=== PATIENT | male | born 1935 | race Caucasian/White ===

== ENCOUNTER → 2023-04-29 07:39 | Outpatient (REF) | payer OTHER, SELFPAY ==
[2023-04-29 08:27] LABS: % Basophils 0.6 % (0-2); % Eosinophils 3.7 % (0-6); % Immature Granulocytes 0.3 % (0-0.5); % Lymphocytes 22.9 % (20.5-51.1); % Monocytes 14.3 % (1.7-9.3); % Neutrophils 58.2 % (42.2-75.2); Absolute Eosinophils 0.1 10^3/uL (0-0.7); Absolute Lymphocytes 0.8 10^3/uL (1.2-3.4); Absolute Monocytes 0.5 10^3/uL (0.1-0.6); Hematocrit 32.9 % (39.0-52.0); Hemoglobin 10.9 g/dL (13.0-18.0); Mean Corp Hgb Conc. 33.1 g/dL (33.0-37.0); Mean Corpuscular Hgb 37.1 pg (27.0-31.0); Mean Corpuscular Volume 111.9 fL (80.0-94.0); Mean Platelet Volume 12.7 fL (7.4-10.4); Platelet Count 143 10^3/uL (130-400); Red Blood Cell Count 2.94 10^6/uL (4.70-6.10); White Blood Cell Count 3.5 10^3/uL (4.8-10.8)
== END ==
LOC: OIDL 07:39
PROVIDERS: ATTENDING PHYSICIAN Internal Medicine Hematology & Oncology; FAMILY PHYSICIAN Family Medicine
DX: D46.9 Myelodysplastic syndrome, unspecified (principal); D46.1 Refractory anemia with ring sideroblasts; D50.9 Iron deficiency anemia, unspecified
CPT/HCPCS: 36415; 85025

== ENCOUNTER → 2023-05-20 07:36 | Outpatient (REF) | payer OTHER, SELFPAY ==
[2023-05-20 08:19] LABS: % Basophils 0.6 % (0-2); % Eosinophils 4.3 % (0-6); % Immature Granulocytes 0.3 % (0-0.5); % Lymphocytes 23.6 % (20.5-51.1); % Monocytes 11.7 % (1.7-9.3); % Neutrophils 59.5 % (42.2-75.2); Absolute Eosinophils 0.2 10^3/uL (0-0.7); Absolute Lymphocytes 0.8 10^3/uL (1.2-3.4); Absolute Monocytes 0.4 10^3/uL (0.1-0.6); Absolute Neutrophils 2.1 10^3/uL (1.4-6.5); Hematocrit 32.9 % (39.0-52.0); Hemoglobin 10.9 g/dL (13.0-18.0); Mean Corp Hgb Conc. 33.1 g/dL (33.0-37.0); Mean Corpuscular Hgb 37.7 pg (27.0-31.0); Mean Corpuscular Volume 113.8 fL (80.0-94.0); Mean Platelet Volume 11.5 fL (7.4-10.4); Platelet Count 145 10^3/uL (130-400); Red Blood Cell Count 2.89 10^6/uL (4.70-6.10); Red Cell Dist. Width 16.3 % (11.5-14.5); White Blood Cell Count 3.5 10^3/uL (4.8-10.8)
== END ==
LOC: OIDL 07:36
PROVIDERS: ATTENDING PHYSICIAN Internal Medicine Hematology & Oncology
DX: D46.9 Myelodysplastic syndrome, unspecified (principal); D46.1 Refractory anemia with ring sideroblasts
CPT/HCPCS: 36415; 85025

== ENCOUNTER → 2023-06-10 08:45 | Outpatient (REF) | payer OTHER, SELFPAY ==
[2023-06-10 08:56] LABS: % Basophils 0.8 % (0-2); % Eosinophils 3.9 % (0-6); % Lymphocytes 20.9 % (20.5-51.1); % Monocytes 13.1 % (1.7-9.3); % Neutrophils 61.3 % (42.2-75.2); Absolute Eosinophils 0.2 10^3/uL (0-0.7); Absolute Lymphocytes 0.8 10^3/uL (1.2-3.4); Absolute Monocytes 0.5 10^3/uL (0.1-0.6); Absolute Neutrophils 2.4 10^3/uL (1.4-6.5); Hematocrit 32.8 % (39.0-52.0); Hemoglobin 10.7 g/dL (13.0-18.0); Mean Corp Hgb Conc. 32.6 g/dL (33.0-37.0); Mean Corpuscular Hgb 37.4 pg (27.0-31.0); Mean Corpuscular Volume 114.7 fL (80.0-94.0); Mean Platelet Volume 10.9 fL (7.4-10.4); Platelet Count 141 10^3/uL (130-400); Red Blood Cell Count 2.86 10^6/uL (4.70-6.10); Red Cell Dist. Width 16.6 % (11.5-14.5); White Blood Cell Count 3.8 10^3/uL (4.8-10.8)
== END ==
LOC: OIDL 08:45
PROVIDERS: ATTENDING PHYSICIAN Internal Medicine Hematology & Oncology; FAMILY PHYSICIAN Family Medicine
DX: D46.9 Myelodysplastic syndrome, unspecified (principal); D46.1 Refractory anemia with ring sideroblasts; D50.9 Iron deficiency anemia, unspecified
CPT/HCPCS: 36415; 85025

== ENCOUNTER → 2023-07-01 08:24 | Outpatient (REF) | payer OTHER, SELFPAY ==
[2023-07-01 08:35] LABS: % Basophils 0.7 % (0-2); % Eosinophils 4.4 % (0-6); % Lymphocytes 29.9 % (20.5-51.1); % Monocytes 13.3 % (1.7-9.3); % Neutrophils 51.7 % (42.2-75.2); Absolute Eosinophils 0.1 10^3/uL (0-0.7); Absolute Lymphocytes 0.9 10^3/uL (1.2-3.4); Absolute Monocytes 0.4 10^3/uL (0.1-0.6); Absolute Neutrophils 1.5 10^3/uL (1.4-6.5); Hematocrit 33.8 % (39.0-52.0); Hemoglobin 11.1 g/dL (13.0-18.0); Mean Corp Hgb Conc. 32.8 g/dL (33.0-37.0); Mean Corpuscular Hgb 37.5 pg (27.0-31.0); Mean Corpuscular Volume 114.2 fL (80.0-94.0); Mean Platelet Volume 11.3 fL (7.4-10.4); Platelet Count 152 10^3/uL (130-400); Red Blood Cell Count 2.96 10^6/uL (4.70-6.10); Red Cell Dist. Width 16.3 % (11.5-14.5); White Blood Cell Count 2.9 10^3/uL (4.8-10.8)
[2023-07-01 09:45] LABS: Blood Urea Nitrogen 28 mg/dl (9-20); Iron 113 ug/dl (49-181)
[2023-07-01 09:54] LABS: Percent Saturation 39 % (20-50); Total Iron Binding Capacity 286 ug/dl (261-462)
== END ==
LOC: OIDL 08:24
PROVIDERS: ATTENDING PHYSICIAN Internal Medicine Hematology & Oncology
DX: D46.9 Myelodysplastic syndrome, unspecified (principal)
CPT/HCPCS: 36415; 82565; 82728; 83540; 83550; 84520; 85025

== ENCOUNTER 2023-07-08 18:41 | Emergency (ER) | payer OTHER, SELFPAY ==
[2023-07-08 18:46] VITALS: BP 125/71
[2023-07-08 18:47] VITALS: BP 125/71
[2023-07-08 18:55] LABS: % Basophils 0.6 % (0-2); % Eosinophils 1.3 % (0-6); % Immature Granulocytes 0.4 % (0-0.5); % Monocytes 10.4 % (1.7-9.3); % Neutrophils 73.3 % (42.2-75.2); Absolute Eosinophils 0.1 10^3/uL (0-0.7); Absolute Lymphocytes 0.7 10^3/uL (1.2-3.4); Absolute Monocytes 0.5 10^3/uL (0.1-0.6); Absolute Neutrophils 3.4 10^3/uL (1.4-6.5); Hematocrit 31.1 % (39.0-52.0); Hemoglobin 10.6 g/dL (13.0-18.0); Mean Corp Hgb Conc. 34.1 g/dL (33.0-37.0); Mean Corpuscular Hgb 37.2 pg (27.0-31.0); Mean Corpuscular Volume 109.1 fL (80.0-94.0); Mean Platelet Volume 11.4 fL (7.4-10.4); Nucleated Red Blood Cells % 0.4 % (-); Platelet Count 161 10^3/uL (130-400); Red Blood Cell Count 2.85 10^6/uL (4.70-6.10); Red Cell Dist. Width 16.6 % (11.5-14.5); White Blood Cell Count 4.7 10^3/uL (4.8-10.8)
--- NOTE | 2023-07-08 18:57 | ED.GENMED ---
History of Present Illness
General
Chief Complaint: Chest Pain
Source: patient
Exam Limitations: none
Time Seen by Provider: 07/08/23 18:50
Nursing documentation reviewed up to this point in time: agreed with
Travel History
Have you had any contact with someone who has COVID-19?: No
Do you have any symptoms of coronavirus? Fever > 100 degrees, chills, cough, shortness of breath, sore throat, loss of taste or smell, muscle aches, or headache?: No
History of Present Illness
History of Present Illness:
Patient is a 87-year-old male past medical history of A-fib, watchman procedure CAD with bypass surgery,, hypertension hyperlipidemia pacemaker, chronic heart failure with reduced ejection fraction myelodysplastic syndrome presents to the ER for
evaluation of chest pain. He had chest pain around 4 PM while sitting in a chair. He denies any associated shortness breath nausea vomiting radiation. He is currently asymptomatic. Pt came by EMS.
Past History
Past History
ED Past Medical History: CAD, CHF, HTN, Hypercholesterolemia and [place]
ED Past Surgical History: Cardiac and Orthopedic
Social History
Tobacco: Non-smoker
Alcohol: None
Drug: None
Personal:
Living: with family
Review of Systems
Review of Systems
Allergies reviewed?: Yes
All Other Systems: ROS reviewed and negative except as documented in HPI and ROS
Constitutional: Reports no symptoms; Denies fever, fatigue or chills
Respiratory: Reports no symptoms
Cardiac: Reports chest pain; Denies diaphoresis, palpitations or syncope
ABD/GI: Reports no symptoms
: Reports no symptoms
Musculoskeletal: Reports no symptoms
Skin: Reports no symptoms
Neurological: Reports no symptoms
Psychiatric: Reports no symptoms
Phy Exam
General Physical Exam
General Presentation: no apparent distress
General age: appears stated age
General Skin: warm and dry
General Habitus: normal and elderly
General Hydration: appears well hydrated
Cardiovascular Exam
Cardiovascular Exam: regular rate/rhythm, no murmur and normal peripheral pulses
Pulmonary Exam
Pulmonary Exam: lungs clear and no respiratory distress
Neurological Exam
Neurological Exam: alert and oriented x3
Musculoskeletal Exam
Musculoskeletal Exam: full ROM
Skin Exam
Skin Exam: normal color and warm/dry
Psychiatric Exam
Psychiatric Exam: normal mood/affect
Scores
Heart Score for Chest Pain Patients
STEMI patient?: Not applicable
Course
Orders/Labs/Results
Orders:
Orders
07/08/23 18:48
Electrocardiogram (*1) Urgent
Reason for Study: Chest Pain
07/08/23 18:49
EKG- Treatment ONCE
07/08/23 18:50
Complete Blood Count/With Diff Urgent
Comprehensive Metabolic Panel Urgent
PT/INR [Prothrombin Time] Urgent
Troponin I Urgent
07/08/23 19:42
Chest [CR Chest - 2 Views ] Urgent
Comment:
Reason For Exam: cp
07/08/23 20:36
EKG- Treatment ONCE
07/08/23 21:50
Electrocardiogram (*1) Stat
Reason for Study: Other
Other Reason for Exam: chest pain
07/08/23 21:51
Troponin I Urgent
Abnormal Lab Results
07/08/23
18:50
WBC 4.7 L 10^3/uL
(4.8-10.8)
RBC 2.85 L 10^6/uL
(4.70-6.10)
Hgb 10.6 L g/dL
(13.0-18.0)
Hct 31.1 L %
(39.0-52.0)
MCV 109.1 H fL
(80.0-94.0)
MCH 37.2 H pg
(27.0-31.0)
RDW 16.6 H %
(11.5-14.5)
MPV 11.4 H fL
(7.4-10.4)
Absolute Lymphs (auto) 0.7 L 10^3/uL
(1.2-3.4)
Lymphocytes % 14.0 L %
(20.5-51.1)
Monocytes % 10.4 H %
(1.7-9.3)
PT 18.1 H Sec
(11.4-14.6)
BUN 31 H mg/dl
(9-20)
Glucose 109 H mg/dl
(70-99)
07/08/23 18:50
07/08/23 18:50
Vital Signs
Initial and Last Documented VS:
Initial Vital Signs
Pulse Resp BP
91 16 125/71
07/08/23 18:46 07/08/23 18:46 07/08/23 18:46
Last Documented Vital Signs
Temp Pulse Resp BP Pulse Ox
98.0 F 60 17 125/67 96
07/08/23 18:47 07/08/23 19:45 07/08/23 19:45 07/08/23 19:00 07/08/23 19:00
MDM/Problems Addressed
Differential Diagnosis Includes:
Not limited to musculoskeletal chest pain ACS
MDM/Problems Addressed:
Patient is a 7-year-old male who presented with chest pain while sitting in his chair prior to arrival around 4 PM. Patient presented asymptomatic in no acute distress. He does have a significant history consistent with CAD bypass A-fib with
Watchman procedure MDS followed here at [place] for his MDS. Patient presents awake alert no acute distress no recent illness who had no associated shortness of breath with the symptoms no nausea vomiting no radiation afebrile nonhypoxic no
complaints of shortness of breath his lungs are clear. His white count is 4.7 and hemoglobin is 10.6 which is baseline. Normal chemistries and troponin. No acute findings/changes on EKG will keep for second Troponin. As documented patient had a
transesophageal echo January 05 which showed mildly reduced left ventricular systolic function left ejection fraction of 45%.
Patient no acute distress lungs clear no shortness of breath has remained asymptomatic here in the ER.
2221: Repeat troponin second EKG unchanged patient remains asymptomatic will DC home and place on chest pain hotline.
*Critical Care Note
Total Time (30-74mins, 75-104mins- exclusive of procedures): Not Applicable
Data Reviewed
Review of Other/Old Records Reveals: Other (Echo from January 05 shows moderately reduced left ventricular function EF is 36% global hypokinesis with severe hypokinesia of the inferior septal and inferior lateral chapa)
ED Attending Note
-
Portions of this chart may have been created with voice recognition software.� Occasional wrong word or��sound alike� substitutions may have occurred due to the inherent limitations of voice recognition software.
Discharge Plan
Departure
Patient Disposition: Home (Routine Discharge)
Date of Disposition: 07/08/23
Time of Disposition: 22:23
Patient with high blood pressure during this ER visit?: Yes
Condition: Fair
Covid-19: Not Applicable
Discharge Problem:
Chest pain
Instructions: BLOOD PRESSURE
Prescriptions:
No Action
cyanocobalamin (vitamin B-12) 1,000 MCG tablet
1,000 mcg PO DAILY
nitroglycerin 0.4 MG tablet, sublingual
0.4 mg sublingual [id number] PRN (Reason: chest pain)
multivitamin Tablet
1 tab PO DAILY
sertraline 100 mg Tablet
100 mg PO HS
PreserVision Lutein 226-90-0.8-5 mg Capsule
1 cap PO BID
omega 2-yip-jwt-fish oil [Fish Oil] 1,000 mg (120 mg-180 mg) Capsule
1 cap PO DAILY
diphenhydramine-acetaminophen [Tylenol PM Extra Strength] 25-500 mg Tablet
1 tab PO HS
melatonin 3 mg Tablet
3 mg PO HS
metoprolol succinate 25 mg Tablet Extended Release 24 Hr
25 mg PO DAILY
Eliquis 5 MG tablet
5 mg PO BID
furosemide 40 mg Tablet
40 mg PO DAILY
Patient Comments:
12/31/22 ecw shows bid but patient's family confirms that he takes it once daily.
acetaminophen 650 mg Tablet Extended Release
650 mg PO [id number] PRN (Reason: mild pain)
pravastatin 80 mg Tablet
40 mg PO QPM
Patient Comments:
12/31/22 patient cuts pill in half
gabapentin 100 mg Capsule
200 mg PO HS
Patient Comments:
12/31/22 prescription is written for 1 capsule tid but patient takes 2 capsules at bedtime.
vitamin E 268 mg (400 unit) Capsule
268 mg PO BID
Entresto 49-51 mg Tablet
1 tab PO BID Qty: 60 0RF
Referrals:
Ryan Coy MD [Active] -
Clark Mancilla MD [Family Provider] -
Activity Restrictions/Additional Instructions:
As discussed you are placed on the chest pain hotline which means you should receive a phone call from your cardiology office in the next several days however if you do not please give them a call to schedule an appointment soon as possible return
of any worsening of symptoms.
Interventions
Interventions:
*Risk Screen - Suicide Last Done: 07/08/23 18:46
*General Assessment Last Done: 07/08/23 18:46
*Neglect/Abuse Screening Last Done: 07/08/23 18:46
*ED COVID-19 Vaccine History Last Done: 07/08/23 18:46
ED- Cardiac Assessment Last Done: 07/08/23 18:55
Discharge Date and Time
Print Language: SAMOAN
[2023-07-08 19:00] VITALS: BP 125/67
[2023-07-08 19:06] LABS: INR 1.49; PT 18.1 Sec (11.4-14.6)
[2023-07-08 19:12] LABS: ALT (SGPT) 17 U/L (0-50); AST (SGOT) 24 U/L (17-59); Albumin 4.4 g/dl (3.5-5.0); Alkaline Phosphatase 80 U/L (38-126); Blood Urea Nitrogen 31 mg/dl (9-20); Calcium 9.2 mg/dl (8.4-10.2); Carbon Dioxide 30 mmol/L (22-30); Chloride 103 mmol/L (98-107); Estimated Creatinine Clearance 42 ml/min; Glucose 109 mg/dl (70-99); Potassium 4.4 mmol/L (3.5-5.1); Sodium 136 mmol/L (135-145); Total Bilirubin 0.5 mg/dl (0.2-1.3); Total Protein 6.8 g/dl (6.3-8.2); eGFR 53.84
[2023-07-08 19:18] LABS: Troponin I 0.012 ng/ml
[2023-07-08 20:55] VITALS: BP 118/73
[2023-07-08 21:00] VITALS: BP 121/67
[2023-07-08 22:00] VITALS: BP 114/62
[2023-07-08 22:20] LABS: Troponin I < 0.012 ng/ml
== END 2023-07-08 22:29 | disposition home or self-care (01) ==
LOC: EMR 18:41
PROVIDERS: Nurse Practitioner; EMERGENCY PHYSICIAN Student in an Organized Health Care Education/Training Program; FAMILY PHYSICIAN Family Medicine
DX: R07.9 Chest pain, unspecified (principal); I11.0 Hypertensive heart disease with heart failure; I25.10 Atherosclerotic heart disease of native coronary artery without angina pectoris; I48.91 Unspecified atrial fibrillation; Z95.0 Presence of cardiac pacemaker; D46.9 Myelodysplastic syndrome, unspecified
CPT/HCPCS: 99285; 71046; 80053; 84484; 85025; 85610; 93005

== ENCOUNTER → 2023-07-22 08:02 | Outpatient (REF) | payer OTHER, SELFPAY ==
[2023-07-22 08:28] LABS: % Basophils 0.9 % (0-2); % Eosinophils 3.7 % (0-6); % Immature Granulocytes 0.3 % (0-0.5); % Lymphocytes 27.1 % (20.5-51.1); % Monocytes 14.5 % (1.7-9.3); % Neutrophils 53.5 % (42.2-75.2); Absolute Eosinophils 0.1 10^3/uL (0-0.7); Absolute Monocytes 0.5 10^3/uL (0.1-0.6); Absolute Neutrophils 1.9 10^3/uL (1.4-6.5); Hematocrit 32.2 % (39.0-52.0); Hemoglobin 10.9 g/dL (13.0-18.0); Mean Corp Hgb Conc. 33.9 g/dL (33.0-37.0); Mean Corpuscular Hgb 38.7 pg (27.0-31.0); Mean Corpuscular Volume 114.2 fL (80.0-94.0); Mean Platelet Volume 12.7 fL (7.4-10.4); Platelet Count 156 10^3/uL (130-400); Red Blood Cell Count 2.82 10^6/uL (4.70-6.10); Red Cell Dist. Width 16.4 % (11.5-14.5); White Blood Cell Count 3.5 10^3/uL (4.8-10.8)
== END ==
LOC: OIDL 08:02
PROVIDERS: ATTENDING PHYSICIAN Internal Medicine Hematology & Oncology
DX: D46.9 Myelodysplastic syndrome, unspecified (principal)
CPT/HCPCS: 36415; 85025

== ENCOUNTER → 2023-08-12 08:21 | Outpatient (REF) | payer OTHER, SELFPAY ==
[2023-08-12 08:48] LABS: % Basophils 0.5 % (0-2); % Eosinophils 0.7 % (0-6); % Lymphocytes 11.6 % (20.5-51.1); % Monocytes 11.3 % (1.7-9.3); % Neutrophils 75.9 % (42.2-75.2); Absolute Lymphocytes 0.7 10^3/uL (1.2-3.4); Absolute Monocytes 0.7 10^3/uL (0.1-0.6); Absolute Neutrophils 4.6 10^3/uL (1.4-6.5); Hematocrit 30.9 % (39.0-52.0); Hemoglobin 10.3 g/dL (13.0-18.0); Mean Corp Hgb Conc. 33.3 g/dL (33.0-37.0); Mean Corpuscular Hgb 38.3 pg (27.0-31.0); Mean Corpuscular Volume 114.9 fL (80.0-94.0); Mean Platelet Volume 10.9 fL (7.4-10.4); Platelet Count 132 10^3/uL (130-400); Red Blood Cell Count 2.69 10^6/uL (4.70-6.10); Red Cell Dist. Width 15.8 % (11.5-14.5)
== END ==
LOC: OIDL 08:21
PROVIDERS: ATTENDING PHYSICIAN Internal Medicine Hematology & Oncology
DX: D46.9 Myelodysplastic syndrome, unspecified (principal)
CPT/HCPCS: 36415; 85025

== ENCOUNTER → 2023-09-02 07:57 | Outpatient (REF) | payer OTHER, SELFPAY ==
[2023-09-02 08:08] LABS: % Basophils 0.7 % (0-2); % Eosinophils 3.6 % (0-6); % Lymphocytes 26.1 % (20.5-51.1); % Monocytes 12.2 % (1.7-9.3); % Neutrophils 57.4 % (42.2-75.2); Absolute Eosinophils 0.1 10^3/uL (0-0.7); Absolute Lymphocytes 0.8 10^3/uL (1.2-3.4); Absolute Monocytes 0.4 10^3/uL (0.1-0.6); Absolute Neutrophils 1.7 10^3/uL (1.4-6.5); Hematocrit 31.1 % (39.0-52.0); Hemoglobin 10.3 g/dL (13.0-18.0); Mean Corp Hgb Conc. 33.1 g/dL (33.0-37.0); Mean Corpuscular Hgb 38.3 pg (27.0-31.0); Mean Corpuscular Volume 115.6 fL (80.0-94.0); Mean Platelet Volume 12.1 fL (7.4-10.4); Platelet Count 162 10^3/uL (130-400); Red Blood Cell Count 2.69 10^6/uL (4.70-6.10); Red Cell Dist. Width 16.2 % (11.5-14.5)
== END ==
LOC: OIDL 07:57
PROVIDERS: ATTENDING PHYSICIAN Internal Medicine Hematology & Oncology; FAMILY PHYSICIAN Family Medicine
DX: D46.9 Myelodysplastic syndrome, unspecified (principal); D46.1 Refractory anemia with ring sideroblasts; D50.9 Iron deficiency anemia, unspecified
CPT/HCPCS: 36415; 85025

== ENCOUNTER → 2023-09-23 08:42 | Outpatient (REF) | payer OTHER, SELFPAY ==
[2023-09-23 08:58] LABS: % Basophils 0.7 % (0-2); % Eosinophils 2.8 % (0-6); % Lymphocytes 25.2 % (20.5-51.1); % Monocytes 13.4 % (1.7-9.3); % Neutrophils 57.9 % (42.2-75.2); Absolute Eosinophils 0.1 10^3/uL (0-0.7); Absolute Lymphocytes 0.7 10^3/uL (1.2-3.4); Absolute Monocytes 0.4 10^3/uL (0.1-0.6); Absolute Neutrophils 1.7 10^3/uL (1.4-6.5); Hematocrit 31.3 % (39.0-52.0); Hemoglobin 10.6 g/dL (13.0-18.0); Mean Corp Hgb Conc. 33.9 g/dL (33.0-37.0); Mean Corpuscular Hgb 39.1 pg (27.0-31.0); Mean Corpuscular Volume 115.5 fL (80.0-94.0); Mean Platelet Volume 12.1 fL (7.4-10.4); Platelet Count 169 10^3/uL (130-400); Red Blood Cell Count 2.71 10^6/uL (4.70-6.10); Red Cell Dist. Width 16.4 % (11.5-14.5); White Blood Cell Count 2.9 10^3/uL (4.8-10.8)
[2023-09-23 10:46] LABS: Iron 135 ug/dl (49-181)
[2023-09-23 10:57] LABS: Percent Saturation 49 % (20-50); Total Iron Binding Capacity 272 ug/dl (261-462)
== END ==
LOC: OIDL 08:42
PROVIDERS: ATTENDING PHYSICIAN Internal Medicine Hematology & Oncology; FAMILY PHYSICIAN Family Medicine
DX: D46.9 Myelodysplastic syndrome, unspecified (principal); D46.1 Refractory anemia with ring sideroblasts; D50.9 Iron deficiency anemia, unspecified
CPT/HCPCS: 36415; 82728; 83540; 83550; 85025

== ENCOUNTER → 2023-10-14 08:34 | Outpatient (REF) | payer OTHER, SELFPAY ==
[2023-10-14 08:42] LABS: % Eosinophils 3.3 % (0-6); % Immature Granulocytes 0.3 % (0-0.5); % Lymphocytes 23.7 % (20.5-51.1); % Monocytes 14.4 % (1.7-9.3); % Neutrophils 57.3 % (42.2-75.2); Absolute Eosinophils 0.1 10^3/uL (0-0.7); Absolute Lymphocytes 0.7 10^3/uL (1.2-3.4); Absolute Monocytes 0.4 10^3/uL (0.1-0.6); Absolute Neutrophils 1.7 10^3/uL (1.4-6.5); Hematocrit 30.7 % (39.0-52.0); Hemoglobin 10.1 g/dL (13.0-18.0); Mean Corp Hgb Conc. 32.9 g/dL (33.0-37.0); Mean Corpuscular Volume 115.4 fL (80.0-94.0); Mean Platelet Volume 11.5 fL (7.4-10.4); Platelet Count 165 10^3/uL (130-400); Red Blood Cell Count 2.66 10^6/uL (4.70-6.10); Red Cell Dist. Width 16.3 % (11.5-14.5)
== END ==
LOC: OIDL 08:34
PROVIDERS: ATTENDING PHYSICIAN Internal Medicine Hematology & Oncology; FAMILY PHYSICIAN Family Medicine
DX: D46.9 Myelodysplastic syndrome, unspecified (principal); D46.1 Refractory anemia with ring sideroblasts; D50.9 Iron deficiency anemia, unspecified
CPT/HCPCS: 36415; 85025

== ENCOUNTER → 2023-11-04 08:30 | Outpatient (REF) | payer OTHER, SELFPAY ==
[2023-11-04 08:39] LABS: % Basophils 0.7 % (0-2); % Eosinophils 2.7 % (0-6); % Lymphocytes 26.8 % (20.5-51.1); % Monocytes 14.8 % (1.7-9.3); Absolute Eosinophils 0.1 10^3/uL (0-0.7); Absolute Lymphocytes 0.8 10^3/uL (1.2-3.4); Absolute Monocytes 0.4 10^3/uL (0.1-0.6); Absolute Neutrophils 1.6 10^3/uL (1.4-6.5); Hematocrit 30.5 % (39.0-52.0); Mean Corp Hgb Conc. 32.8 g/dL (33.0-37.0); Mean Corpuscular Hgb 38.3 pg (27.0-31.0); Mean Corpuscular Volume 116.9 fL (80.0-94.0); Platelet Count 170 10^3/uL (130-400); Red Blood Cell Count 2.61 10^6/uL (4.70-6.10); Red Cell Dist. Width 16.6 % (11.5-14.5)
== END ==
LOC: OIDL 08:30
PROVIDERS: ATTENDING PHYSICIAN Internal Medicine Hematology & Oncology; FAMILY PHYSICIAN Family Medicine
DX: D46.9 Myelodysplastic syndrome, unspecified (principal); D46.1 Refractory anemia with ring sideroblasts; D50.9 Iron deficiency anemia, unspecified
CPT/HCPCS: 36415; 85025

== ENCOUNTER → 2023-11-25 08:22 | Outpatient (REF) | payer OTHER, SELFPAY ==
[2023-11-25 09:05] LABS: % Basophils 0.7 % (0-2); % Eosinophils 2.7 % (0-6); % Immature Granulocytes 0.3 % (0-0.5); % Lymphocytes 25.4 % (20.5-51.1); % Monocytes 13.7 % (1.7-9.3); % Neutrophils 57.2 % (42.2-75.2); Absolute Eosinophils 0.1 10^3/uL (0-0.7); Absolute Lymphocytes 0.8 10^3/uL (1.2-3.4); Absolute Monocytes 0.4 10^3/uL (0.1-0.6); Absolute Neutrophils 1.7 10^3/uL (1.4-6.5); Hematocrit 27.3 % (39.0-52.0); Hemoglobin 8.9 g/dL (13.0-18.0); Mean Corp Hgb Conc. 32.6 g/dL (33.0-37.0); Mean Corpuscular Hgb 38.5 pg (27.0-31.0); Mean Corpuscular Volume 118.2 fL (80.0-94.0); Mean Platelet Volume 11.7 fL (7.4-10.4); Platelet Count 176 10^3/uL (130-400); Red Blood Cell Count 2.31 10^6/uL (4.70-6.10); Red Cell Dist. Width 16.8 % (11.5-14.5)
== END ==
LOC: OIDL 08:22
PROVIDERS: ATTENDING PHYSICIAN Internal Medicine Hematology & Oncology; FAMILY PHYSICIAN Family Medicine
DX: D46.9 Myelodysplastic syndrome, unspecified (principal); D46.1 Refractory anemia with ring sideroblasts; D50.9 Iron deficiency anemia, unspecified
CPT/HCPCS: 36415; 85025

== ENCOUNTER → 2024-01-06 08:57 | Outpatient (REF) | payer OTHER, SELFPAY ==
[2024-01-06 09:02] LABS: % Basophils 0.8 % (0-2); % Eosinophils 2.7 % (0-6); % Lymphocytes 28.8 % (20.5-51.1); % Neutrophils 52.7 % (42.2-75.2); Absolute Eosinophils 0.1 10^3/uL (0-0.7); Absolute Lymphocytes 0.8 10^3/uL (1.2-3.4); Absolute Monocytes 0.4 10^3/uL (0.1-0.6); Absolute Neutrophils 1.4 10^3/uL (1.4-6.5); Hematocrit 26.2 % (39.0-52.0); Hemoglobin 8.4 g/dL (13.0-18.0); Mean Corp Hgb Conc. 32.1 g/dL (33.0-37.0); Mean Corpuscular Volume 118.6 fL (80.0-94.0); Mean Platelet Volume 11.9 fL (7.4-10.4); Platelet Count 227 10^3/uL (130-400); Red Blood Cell Count 2.21 10^6/uL (4.70-6.10); Red Cell Dist. Width 17.3 % (11.5-14.5); White Blood Cell Count 2.6 10^3/uL (4.8-10.8)
== END ==
LOC: OIDL 08:57
PROVIDERS: ATTENDING PHYSICIAN Internal Medicine Hematology & Oncology; FAMILY PHYSICIAN Family Medicine
DX: D46.9 Myelodysplastic syndrome, unspecified (principal); D46.1 Refractory anemia with ring sideroblasts; D50.9 Iron deficiency anemia, unspecified
CPT/HCPCS: 36415; 85025

== ENCOUNTER → 2024-01-27 08:48 | Outpatient (REF) | payer OTHER, SELFPAY ==
[2024-01-27 09:00] LABS: % Basophils 0.9 % (0-2); % Eosinophils 2.3 % (0-6); % Immature Granulocytes 0.3 % (0-0.5); % Lymphocytes 25.4 % (20.5-51.1); % Monocytes 12.6 % (1.7-9.3); % Neutrophils 58.5 % (42.2-75.2); Absolute Eosinophils 0.1 10^3/uL (0-0.7); Absolute Lymphocytes 0.9 10^3/uL (1.2-3.4); Absolute Monocytes 0.4 10^3/uL (0.1-0.6); Hematocrit 24.3 % (39.0-52.0); Hemoglobin 7.8 g/dL (13.0-18.0); Mean Corp Hgb Conc. 32.1 g/dL (33.0-37.0); Mean Corpuscular Hgb 38.8 pg (27.0-31.0); Mean Corpuscular Volume 120.9 fL (80.0-94.0); Mean Platelet Volume 12.1 fL (7.4-10.4); Platelet Count 230 10^3/uL (130-400); Red Blood Cell Count 2.01 10^6/uL (4.70-6.10); Red Cell Dist. Width 18.5 % (11.5-14.5); White Blood Cell Count 3.4 10^3/uL (4.8-10.8)
== END ==
LOC: OIDL 08:48
PROVIDERS: ATTENDING PHYSICIAN Internal Medicine Hematology & Oncology; FAMILY PHYSICIAN Family Medicine
DX: D46.9 Myelodysplastic syndrome, unspecified (principal); D46.1 Refractory anemia with ring sideroblasts; D50.9 Iron deficiency anemia, unspecified
CPT/HCPCS: 36415; 85025

== ENCOUNTER → 2024-02-03 08:07 | Outpatient (REF) | payer OTHER, SELFPAY ==
[2024-02-03 08:23] LABS: % Basophils 0.9 % (0-2); % Eosinophils 2.1 % (0-6); % Lymphocytes 24.8 % (20.5-51.1); % Monocytes 13.6 % (1.7-9.3); % Neutrophils 58.6 % (42.2-75.2); Absolute Eosinophils 0.1 10^3/uL (0-0.7); Absolute Lymphocytes 0.8 10^3/uL (1.2-3.4); Absolute Monocytes 0.5 10^3/uL (0.1-0.6); Absolute Neutrophils 1.9 10^3/uL (1.4-6.5); Hematocrit 24.6 % (39.0-52.0); Mean Corp Hgb Conc. 32.5 g/dL (33.0-37.0); Mean Corpuscular Hgb 39.2 pg (27.0-31.0); Mean Corpuscular Volume 120.6 fL (80.0-94.0); Mean Platelet Volume 11.6 fL (7.4-10.4); Platelet Count 213 10^3/uL (130-400); Red Blood Cell Count 2.04 10^6/uL (4.70-6.10); Red Cell Dist. Width 18.6 % (11.5-14.5); White Blood Cell Count 3.3 10^3/uL (4.8-10.8)
== END ==
LOC: OIDL 08:07
PROVIDERS: ATTENDING PHYSICIAN Internal Medicine Hematology & Oncology; FAMILY PHYSICIAN Family Medicine
DX: D46.9 Myelodysplastic syndrome, unspecified (principal); D46.1 Refractory anemia with ring sideroblasts; D50.9 Iron deficiency anemia, unspecified
CPT/HCPCS: 36415; 85025

== ENCOUNTER → 2024-02-17 08:42 | Outpatient (REF) | payer OTHER, SELFPAY ==
[2024-02-17 09:00] LABS: % Eosinophils 1.6 % (0-6); % Lymphocytes 25.7 % (20.5-51.1); % Monocytes 11.5 % (1.7-9.3); % Neutrophils 60.2 % (42.2-75.2); Absolute Eosinophils 0.1 10^3/uL (0-0.7); Absolute Lymphocytes 0.8 10^3/uL (1.2-3.4); Absolute Monocytes 0.4 10^3/uL (0.1-0.6); Absolute Neutrophils 1.8 10^3/uL (1.4-6.5); Hematocrit 23.5 % (39.0-52.0); Hemoglobin 7.5 g/dL (13.0-18.0); Mean Corp Hgb Conc. 31.9 g/dL (33.0-37.0); Mean Corpuscular Hgb 38.3 pg (27.0-31.0); Mean Corpuscular Volume 119.9 fL (80.0-94.0); Mean Platelet Volume 12.1 fL (7.4-10.4); Platelet Count 206 10^3/uL (130-400); Red Blood Cell Count 1.96 10^6/uL (4.70-6.10); Red Cell Dist. Width 18.7 % (11.5-14.5)
== END ==
LOC: OIDL 08:42
PROVIDERS: ATTENDING PHYSICIAN Internal Medicine Hematology & Oncology; FAMILY PHYSICIAN Family Medicine
DX: D46.9 Myelodysplastic syndrome, unspecified (principal); D46.1 Refractory anemia with ring sideroblasts; D50.9 Iron deficiency anemia, unspecified
CPT/HCPCS: 36415; 85025; 86850; 86870; 86900; 86901; 86902; 86905; 86920; 86922

== ENCOUNTER 2024-03-10 08:45 | Outpatient (RCR) | payer OTHER, SELFPAY ==
[2024-02-18 08:25] VITALS: BP 104/57
[2024-02-18 08:42] VITALS: BP 104/57
[2024-02-18 09:00] VITALS: BP 98/54
[2024-02-18 11:06] VITALS: BP 108/61
[2024-03-10 08:55] LABS: % Basophils 0.7 % (0-2); % Eosinophils 2.2 % (0-6); % Lymphocytes 27.7 % (20.5-51.1); % Neutrophils 54.4 % (42.2-75.2); Absolute Eosinophils 0.1 10^3/uL (0-0.7); Absolute Lymphocytes 0.8 10^3/uL (1.2-3.4); Absolute Monocytes 0.4 10^3/uL (0.1-0.6); Absolute Neutrophils 1.5 10^3/uL (1.4-6.5); Hematocrit 27.7 % (39.0-52.0); Hemoglobin 8.9 g/dL (13.0-18.0); Mean Corp Hgb Conc. 32.1 g/dL (33.0-37.0); Mean Corpuscular Hgb 37.4 pg (27.0-31.0); Mean Corpuscular Volume 116.4 fL (80.0-94.0); Mean Platelet Volume 11.8 fL (7.4-10.4); Platelet Count 193 10^3/uL (130-400); Red Blood Cell Count 2.38 10^6/uL (4.70-6.10); Red Cell Dist. Width 19.4 % (11.5-14.5); White Blood Cell Count 2.7 10^3/uL (4.8-10.8)
== END 2024-03-15 23:59 | disposition home or self-care (01) ==
LOC: OID 08:45
PROVIDERS: ATTENDING PHYSICIAN Internal Medicine Hematology & Oncology
DX: D46.9 Myelodysplastic syndrome, unspecified (principal)
CPT/HCPCS: 36415; 36430; 85025; 86850; 86870; 86900; 86901; 86902; 86905; 86920; 86922; P9016

== ENCOUNTER → 2024-03-30 08:11 | Outpatient (REF) | payer OTHER, SELFPAY ==
[2024-03-30 08:38] LABS: % Lymphocytes 21.5 % (20.5-51.1); % Monocytes 13.2 % (1.7-9.3); % Neutrophils 62.3 % (42.2-75.2); Absolute Eosinophils 0.1 10^3/uL (0-0.7); Absolute Lymphocytes 0.7 10^3/uL (1.2-3.4); Absolute Monocytes 0.4 10^3/uL (0.1-0.6); Absolute Neutrophils 1.9 10^3/uL (1.4-6.5); Hematocrit 28.6 % (39.0-52.0); Hemoglobin 9.4 g/dL (13.0-18.0); Mean Corp Hgb Conc. 32.9 g/dL (33.0-37.0); Mean Corpuscular Hgb 38.2 pg (27.0-31.0); Mean Corpuscular Volume 116.3 fL (80.0-94.0); Mean Platelet Volume 12.2 fL (7.4-10.4); Platelet Count 212 10^3/uL (130-400); Red Blood Cell Count 2.46 10^6/uL (4.70-6.10); Red Cell Dist. Width 18.8 % (11.5-14.5)
[2024-03-30 09:26] LABS: Iron 177 ug/dl (49-181)
[2024-03-30 09:35] LABS: Percent Saturation 56 % (20-50); Total Iron Binding Capacity 313 ug/dl (261-462)
== END ==
LOC: OIDL 08:11
PROVIDERS: ATTENDING PHYSICIAN Internal Medicine Hematology & Oncology
DX: D46.9 Myelodysplastic syndrome, unspecified (principal); D46.1 Refractory anemia with ring sideroblasts; D50.9 Iron deficiency anemia, unspecified
CPT/HCPCS: 36415; 82728; 83540; 83550; 85025

== ENCOUNTER → 2024-04-20 10:51 | Outpatient (REF) | payer OTHER, SELFPAY ==
[2024-04-20 11:23] LABS: % Basophils 0.7 % (0-2); % Eosinophils 2.6 % (0-6); % Lymphocytes 27.1 % (20.5-51.1); % Neutrophils 53.6 % (42.2-75.2); Absolute Eosinophils 0.1 10^3/uL (0-0.7); Absolute Lymphocytes 0.7 10^3/uL (1.2-3.4); Absolute Monocytes 0.4 10^3/uL (0.1-0.6); Absolute Neutrophils 1.4 10^3/uL (1.4-6.5); Hematocrit 25.3 % (39.0-52.0); Hemoglobin 8.1 g/dL (13.0-18.0); Mean Corpuscular Volume 118.8 fL (80.0-94.0); Mean Platelet Volume 10.8 fL (7.4-10.4); Platelet Count 179 10^3/uL (130-400); Red Blood Cell Count 2.13 10^6/uL (4.70-6.10); Red Cell Dist. Width 18.2 % (11.5-14.5); White Blood Cell Count 2.7 10^3/uL (4.8-10.8)
== END ==
LOC: OIDL 10:51
PROVIDERS: ATTENDING PHYSICIAN Internal Medicine Hematology & Oncology; FAMILY PHYSICIAN Family Medicine
DX: D46.9 Myelodysplastic syndrome, unspecified (principal); D46.1 Refractory anemia with ring sideroblasts; D50.9 Iron deficiency anemia, unspecified
CPT/HCPCS: 36415; 85025

== ENCOUNTER 2024-05-02 09:56 | Outpatient (RCR) | payer OTHER, SELFPAY ==
[2024-04-29 10:56] LABS: % Basophils 1.2 % (0-2); % Eosinophils 1.2 % (0-6); % Immature Granulocytes 0.3 % (0-0.5); % Lymphocytes 22.5 % (20.5-51.1); % Neutrophils 58.8 % (42.2-75.2); Absolute Lymphocytes 0.7 10^3/uL (1.2-3.4); Absolute Monocytes 0.5 10^3/uL (0.1-0.6); Absolute Neutrophils 1.9 10^3/uL (1.4-6.5); Hematocrit 23.3 % (39.0-52.0); Hemoglobin 7.5 g/dL (13.0-18.0); Mean Corp Hgb Conc. 32.2 g/dL (33.0-37.0); Mean Corpuscular Hgb 39.1 pg (27.0-31.0); Mean Corpuscular Volume 121.4 fL (80.0-94.0); Mean Platelet Volume 12.5 fL (7.4-10.4); Platelet Count 208 10^3/uL (130-400); Red Cell Dist. Width 18.4 % (11.5-14.5); White Blood Cell Count 3.3 10^3/uL (4.8-10.8)
[2024-04-29 11:30] LABS: Red Blood Cell Count 1.92 10^6/uL (4.70-6.10)
[2024-05-02 10:20] VITALS: BP 109/56
[2024-05-02] MEDS: TYLENOL 650 MG PO (10:24)
[2024-05-02 10:33] VITALS: BP 109/56
[2024-05-02 10:52] VITALS: BP 105/55
[2024-05-02 12:38] VITALS: BP 105/64
== END 2024-05-13 23:59 | disposition home or self-care (01) ==
LOC: OID 09:56
PROVIDERS: ATTENDING PHYSICIAN Internal Medicine Hematology & Oncology
DX: D46.9 Myelodysplastic syndrome, unspecified (principal)
CPT/HCPCS: 36415; 36430; 85025; 86850; 86870; 86900; 86901; 86920; 86922; P9016

== ENCOUNTER → 2024-05-11 08:21 | Outpatient (REF) | payer OTHER, SELFPAY ==
[2024-05-11 08:33] LABS: % Basophils 0.7 % (0-2); % Lymphocytes 24.2 % (20.5-51.1); % Monocytes 15.6 % (1.7-9.3); % Neutrophils 57.5 % (42.2-75.2); Absolute Eosinophils 0.1 10^3/uL (0-0.7); Absolute Lymphocytes 0.7 10^3/uL (1.2-3.4); Absolute Monocytes 0.5 10^3/uL (0.1-0.6); Absolute Neutrophils 1.7 10^3/uL (1.4-6.5); Hematocrit 25.1 % (39.0-52.0); Mean Corp Hgb Conc. 31.9 g/dL (33.0-37.0); Mean Corpuscular Hgb 37.4 pg (27.0-31.0); Mean Corpuscular Volume 117.3 fL (80.0-94.0); Mean Platelet Volume 11.2 fL (7.4-10.4); Platelet Count 198 10^3/uL (130-400); Red Blood Cell Count 2.14 10^6/uL (4.70-6.10); Red Cell Dist. Width 21.4 % (11.5-14.5)
== END ==
LOC: OIDL 08:21
PROVIDERS: ATTENDING PHYSICIAN Internal Medicine Hematology & Oncology; FAMILY PHYSICIAN Family Medicine
DX: D46.9 Myelodysplastic syndrome, unspecified (principal); D46.1 Refractory anemia with ring sideroblasts; D50.9 Iron deficiency anemia, unspecified
CPT/HCPCS: 36415; 85025

== ENCOUNTER → 2024-05-25 08:06 | Outpatient (REF) | payer OTHER, SELFPAY | LOC: RCS 08:06 | PROVIDERS: ATTENDING PHYSICIAN Internal Medicine | DX: I50.22 Chronic systolic (congestive) heart failure (principal); I25.10 Atherosclerotic heart disease of native coronary artery without angina pectoris; I25.810 Atherosclerosis of coronary artery bypass graft(s) without angina pectoris; I34.0 Nonrheumatic mitral (valve) insufficiency; I36.1 Nonrheumatic tricuspid (valve) insufficiency | CPT/HCPCS: 93306 ==

== ENCOUNTER → 2024-06-01 09:05 | Outpatient (REF) | payer OTHER, SELFPAY ==
[2024-06-01 09:18] LABS: % Basophils 1.3 % (0-2); % Immature Granulocytes 0.3 % (0-0.5); % Lymphocytes 29.2 % (20.5-51.1); % Monocytes 14.6 % (1.7-9.3); % Neutrophils 53.6 % (42.2-75.2); Absolute Basophils 0.1 10^3/uL (0-0.2); Absolute Lymphocytes 1.1 10^3/uL (1.2-3.4); Absolute Monocytes 0.6 10^3/uL (0.1-0.6); Absolute Neutrophils 2.1 10^3/uL (1.4-6.5); Hematocrit 30.6 % (39.0-52.0); Mean Corp Hgb Conc. 32.7 g/dL (33.0-37.0); Mean Corpuscular Hgb 37.6 pg (27.0-31.0); Mean Platelet Volume 11.4 fL (7.4-10.4); Platelet Count 252 10^3/uL (130-400); Red Blood Cell Count 2.66 10^6/uL (4.70-6.10); Red Cell Dist. Width 21.4 % (11.5-14.5); White Blood Cell Count 3.8 10^3/uL (4.8-10.8)
== END ==
LOC: OIDL 09:05
PROVIDERS: ATTENDING PHYSICIAN Nurse Practitioner Adult Health
DX: D46.9 Myelodysplastic syndrome, unspecified (principal); D46.1 Refractory anemia with ring sideroblasts; D50.9 Iron deficiency anemia, unspecified
CPT/HCPCS: 36415; 85025

== ENCOUNTER → 2024-06-22 08:47 | Outpatient (REF) | payer OTHER, SELFPAY ==
[2024-06-22 08:55] LABS: % Basophils 1.2 % (0-2); % Immature Granulocytes 0.2 % (0-0.5); % Lymphocytes 20.9 % (20.5-51.1); % Monocytes 13.7 % (1.7-9.3); Absolute Basophils 0.1 10^3/uL (0-0.2); Absolute Lymphocytes 0.8 10^3/uL (1.2-3.4); Absolute Monocytes 0.6 10^3/uL (0.1-0.6); Absolute Neutrophils 2.5 10^3/uL (1.4-6.5); Hematocrit 30.8 % (39.0-52.0); Mean Corp Hgb Conc. 32.5 g/dL (33.0-37.0); Mean Corpuscular Volume 117.1 fL (80.0-94.0); Mean Platelet Volume 11.9 fL (7.4-10.4); Platelet Count 266 10^3/uL (130-400); Red Blood Cell Count 2.63 10^6/uL (4.70-6.10); Red Cell Dist. Width 21.2 % (11.5-14.5)
== END ==
LOC: OIDL 08:47
PROVIDERS: ATTENDING PHYSICIAN Nurse Practitioner Adult Health
DX: D46.9 Myelodysplastic syndrome, unspecified (principal); D46.1 Refractory anemia with ring sideroblasts; D50.9 Iron deficiency anemia, unspecified
CPT/HCPCS: 36415; 85025

== ENCOUNTER → 2024-07-13 08:42 | Outpatient (REF) | payer OTHER, SELFPAY ==
[2024-07-13 09:20] LABS: % Basophils 1.1 % (0-2); % Eosinophils 1.9 % (0-6); % Immature Granulocytes 0.5 % (0-0.5); % Lymphocytes 21.3 % (20.5-51.1); % Monocytes 11.4 % (1.7-9.3); % Neutrophils 63.8 % (42.2-75.2); Absolute Eosinophils 0.1 10^3/uL (0-0.7); Absolute Lymphocytes 0.8 10^3/uL (1.2-3.4); Absolute Monocytes 0.4 10^3/uL (0.1-0.6); Absolute Neutrophils 2.4 10^3/uL (1.4-6.5); Hematocrit 28.5 % (39.0-52.0); Hemoglobin 9.2 g/dL (13.0-18.0); Mean Corp Hgb Conc. 32.3 g/dL (33.0-37.0); Mean Corpuscular Hgb 37.9 pg (27.0-31.0); Mean Corpuscular Volume 117.3 fL (80.0-94.0); Platelet Count 181 10^3/uL (130-400); Red Blood Cell Count 2.43 10^6/uL (4.70-6.10); Red Cell Dist. Width 20.3 % (11.5-14.5); White Blood Cell Count 3.8 10^3/uL (4.8-10.8)
[2024-07-13 10:37] LABS: ALT (SGPT) 14 U/L (0-50); AST (SGOT) 20 U/L (17-59); Albumin 3.9 g/dl (3.5-5.0); Alkaline Phosphatase 75 U/L (38-126); Blood Urea Nitrogen 27 mg/dl (9-20); Calcium 8.9 mg/dl (8.4-10.2); Carbon Dioxide 27 mmol/L (22-30); Chloride 107 mmol/L (98-107); Glucose 114 mg/dl (70-99); HDL Cholesterol 39 mg/dl; LDL Cholesterol, Calculated 24 mg/dl; Potassium 4.5 mmol/L (3.5-5.1); Sodium 141 mmol/L (135-145); Total Bilirubin 0.6 mg/dl (0.2-1.3); Total Cholesterol 82 mg/dl (50-199); Total Protein 5.9 g/dl (6.3-8.2); Triglyceride 95 mg/dl (10-149); Very Low Density Lipoprotein 19 mg/dl (0-30)
== END ==
LOC: OIDL 08:42
PROVIDERS: Internal Medicine; ATTENDING PHYSICIAN Nurse Practitioner Adult Health
DX: D46.9 Myelodysplastic syndrome, unspecified (principal); D46.1 Refractory anemia with ring sideroblasts; D50.9 Iron deficiency anemia, unspecified
CPT/HCPCS: 36415; 80053; 80061; 85025

== ENCOUNTER → 2024-07-29 14:49 | Outpatient (REF) | payer OTHER, SELFPAY | LOC: RAD 14:49 | PROVIDERS: ATTENDING PHYSICIAN Family Medicine | DX: M54.50 Low back pain, unspecified (principal) | CPT/HCPCS: 72110 ==

== ENCOUNTER → 2024-08-03 08:42 | Outpatient (REF) | payer OTHER, SELFPAY ==
[2024-08-03 09:28] LABS: % Basophils 1.2 % (0-2); % Immature Granulocytes 0.2 % (0-0.5); % Lymphocytes 23.9 % (20.5-51.1); % Monocytes 17.1 % (1.7-9.3); % Neutrophils 56.6 % (42.2-75.2); Absolute Basophils 0.1 10^3/uL (0-0.2); Absolute Monocytes 0.7 10^3/uL (0.1-0.6); Absolute Neutrophils 2.4 10^3/uL (1.4-6.5); Hematocrit 30.8 % (39.0-52.0); Hemoglobin 10.1 g/dL (13.0-18.0); Mean Corp Hgb Conc. 32.8 g/dL (33.0-37.0); Mean Corpuscular Hgb 38.3 pg (27.0-31.0); Mean Corpuscular Volume 116.7 fL (80.0-94.0); Platelet Count 232 10^3/uL (130-400); Red Blood Cell Count 2.64 10^6/uL (4.70-6.10); Red Cell Dist. Width 19.6 % (11.5-14.5); White Blood Cell Count 4.2 10^3/uL (4.8-10.8)
== END ==
LOC: OIDL 08:42
PROVIDERS: ATTENDING PHYSICIAN Nurse Practitioner Adult Health
DX: D46.9 Myelodysplastic syndrome, unspecified (principal); D46.1 Refractory anemia with ring sideroblasts; D50.9 Iron deficiency anemia, unspecified
CPT/HCPCS: 36415; 85025

== ENCOUNTER → 2024-08-24 08:35 | Outpatient (REF) | payer OTHER, SELFPAY ==
[2024-08-24 09:02] LABS: % Basophils 0.9 % (0-2); % Eosinophils 2.1 % (0-6); % Immature Granulocytes 0.3 % (0-0.5); % Lymphocytes 26.5 % (20.5-51.1); % Neutrophils 55.2 % (42.2-75.2); Absolute Eosinophils 0.1 10^3/uL (0-0.7); Absolute Lymphocytes 0.9 10^3/uL (1.2-3.4); Absolute Monocytes 0.5 10^3/uL (0.1-0.6); Absolute Neutrophils 1.9 10^3/uL (1.4-6.5); Hemoglobin 9.6 g/dL (13.0-18.0); Mean Corpuscular Hgb 37.2 pg (27.0-31.0); Mean Corpuscular Volume 116.3 fL (80.0-94.0); Platelet Count 213 10^3/uL (130-400); Red Blood Cell Count 2.58 10^6/uL (4.70-6.10); White Blood Cell Count 3.4 10^3/uL (4.8-10.8)
== END ==
LOC: OIDL 08:35
PROVIDERS: ATTENDING PHYSICIAN Nurse Practitioner Adult Health
DX: D46.9 Myelodysplastic syndrome, unspecified (principal); D46.1 Refractory anemia with ring sideroblasts; D50.9 Iron deficiency anemia, unspecified
CPT/HCPCS: 36415; 85025

== ENCOUNTER → 2024-09-14 08:42 | Outpatient (REF) | payer OTHER, SELFPAY ==
[2024-09-14 08:57] LABS: Hematocrit 26.9 % (39.0-52.0); Hemoglobin 8.5 g/dL (13.0-18.0); Mean Corp Hgb Conc. 31.6 g/dL (33.0-37.0); Mean Corpuscular Volume 115.0 fL (80.0-94.0); Platelet Count 197 10^3/uL (130-400); Red Cell Dist. Width 19.6 % (11.5-14.5)
== END ==
LOC: OIDL 08:42
PROVIDERS: ATTENDING PHYSICIAN Internal Medicine Hematology & Oncology
DX: D46.9 Myelodysplastic syndrome, unspecified (principal); D46.1 Refractory anemia with ring sideroblasts; D50.9 Iron deficiency anemia, unspecified
CPT/HCPCS: 36415; 85025

== ENCOUNTER → 2024-10-05 09:00 | Outpatient (REF) | payer OTHER, SELFPAY ==
[2024-10-05 10:08] LABS: Hematocrit 26.9 % (39.0-52.0); Hemoglobin 8.3 g/dL (13.0-18.0); Mean Corp Hgb Conc. 30.9 g/dL (33.0-37.0); Mean Corpuscular Volume 111.2 fL (80.0-94.0); Platelet Count 202 10^3/uL (130-400); Red Cell Dist. Width 21.0 % (11.5-14.5)
== END ==
LOC: OIDL 09:00
PROVIDERS: ATTENDING PHYSICIAN Internal Medicine Hematology & Oncology
DX: D46.9 Myelodysplastic syndrome, unspecified (principal); D46.1 Refractory anemia with ring sideroblasts; D50.9 Iron deficiency anemia, unspecified
CPT/HCPCS: 85025

== ENCOUNTER → 2024-10-26 08:34 | Outpatient (REF) | payer OTHER, SELFPAY ==
[2024-10-26 09:39] LABS: Hematocrit 24.6 % (39.0-52.0); Hemoglobin 7.4 g/dL (13.0-18.0); Mean Corp Hgb Conc. 30.1 g/dL (33.0-37.0); Mean Corpuscular Volume 108.4 fL (80.0-94.0); Platelet Count 189 10^3/uL (130-400); Red Cell Dist. Width 22.7 % (11.5-14.5)
[2024-10-26 09:40] LABS: Nucleated Red Blood Cells % 1.5 % (-)
== END ==
LOC: OIDL 08:34
PROVIDERS: ATTENDING PHYSICIAN Internal Medicine Hematology & Oncology
DX: D46.9 Myelodysplastic syndrome, unspecified (principal); D46.1 Refractory anemia with ring sideroblasts; D50.9 Iron deficiency anemia, unspecified
CPT/HCPCS: 36415; 85025; 86850; 86870; 86900; 86901; 86902; 86905

== ENCOUNTER 2024-10-28 07:29 | Outpatient (RCR) | payer OTHER, SELFPAY ==
[2024-10-28 08:03] VITALS: BP 121/87
[2024-10-28 08:23] VITALS: BP 106/46
[2024-10-28 09:58] VITALS: BP 121/57
== END 2024-11-13 23:59 | disposition home or self-care (01) ==
LOC: OID 07:29
PROVIDERS: ATTENDING PHYSICIAN Internal Medicine Hematology & Oncology
DX: D46.9 Myelodysplastic syndrome, unspecified (principal); D46.1 Refractory anemia with ring sideroblasts; D50.9 Iron deficiency anemia, unspecified
CPT/HCPCS: 36430; 86850; 86870; 86900; 86901; 86902; 86905; 86920; 86922; P9016

== ENCOUNTER → 2024-11-04 15:45 | Outpatient (REF) | payer OTHER, SELFPAY ==
[2024-11-04 16:23] LABS: Hematocrit 27.9 % (39.0-52.0); Hemoglobin 8.5 g/dL (13.0-18.0); Mean Corp Hgb Conc. 30.5 g/dL (33.0-37.0); Mean Corpuscular Volume 104.1 fL (80.0-94.0); Nucleated Red Blood Cells % 1.8 % (-); Platelet Count 182 10^3/uL (130-400); Red Cell Dist. Width 23.1 % (11.5-14.5)
[2024-11-04 16:38] LABS: Normal RBC Morphology No
[2024-11-04 16:41] LABS: Anisocytosis 2+; Hypochromasia 2+; Poikilocytosis 1+; Polychromasia 1+
[2024-11-04 16:42] LABS: Target Cells 1+
== END ==
LOC: REG 15:45
PROVIDERS: ATTENDING PHYSICIAN Internal Medicine Hematology & Oncology
DX: D46.9 Myelodysplastic syndrome, unspecified (principal); D46.1 Refractory anemia with ring sideroblasts; D50.9 Iron deficiency anemia, unspecified
CPT/HCPCS: 36415; 85025

== ENCOUNTER 2024-11-04 20:11 | Emergency (ER) | payer OTHER, SELFPAY ==
[2024-11-04 20:16] VITALS: BP 134/72
[2024-11-04 20:45] LABS: Hematocrit 27.2 % (39.0-52.0); Hemoglobin 8.4 g/dL (13.0-18.0); Mean Corp Hgb Conc. 30.9 g/dL (33.0-37.0); Mean Corpuscular Volume 102.3 fL (80.0-94.0); Nucleated Red Blood Cells % 1.5 % (-); Platelet Count 195 10^3/uL (130-400); Red Cell Dist. Width 23.0 % (11.5-14.5)
[2024-11-04 21:05] LABS: ALT (SGPT) 16 U/L (0-50); AST (SGOT) 23 U/L (17-59); Albumin 4.3 g/dl (3.5-5.0); Alkaline Phosphatase 92 U/L (38-126); Blood Urea Nitrogen 39 mg/dl (9-20); Calcium 8.8 mg/dl (8.4-10.2); Carbon Dioxide 28 mmol/L (22-30); Chloride 104 mmol/L (98-107); Glucose 107 mg/dl (70-99); Potassium 4.6 mmol/L (3.5-5.1); Sodium 138 mmol/L (135-145); Total Protein 6.4 g/dl (6.3-8.2); eGFR 41.70
[2024-11-04 21:24] LABS: Normal RBC Morphology No
[2024-11-04 21:25] LABS: Anisocytosis 3+; Basophilic Stippling 1+; Hypochromasia 2+; Polychromasia 1+; Target Cells 1+
[2024-11-04 21:48] VITALS: BP 145/86
[2024-11-04 22:00] VITALS: BP 144/74
--- NOTE | 2024-11-04 22:44 | ED.GENMED ---
History of Present Illness
General
Chief Complaint: Breathing Problem
Time Seen by Provider: 11/04/24 22:44
History of Present Illness
History of Present Illness:
PAST MEDICAL HISTORY AND REVIEW OF OLD RECORDS
- Patient has history of A-fib, CAD, high blood pressure, myelodysplastic syndrome
Note:
CHIEF COMPLAINT(S)
Shortness of breath and fatigue.
HISTORY OF PRESENT ILLNESS
The patient is an 88-year-old male with a history of myelodysplastic syndrome who presents with increased shortness of breath and fatigue following a blood transfusion performed about a week ago at an infusion center. At the last recorded laboratory
test, the patient had a hemoglobin level of 7.4, which was the reason for the transfusion. Post-transfusion, his hemoglobin has increased to 8.4. Despite this, the patient is experiencing significant dyspnea on exertion, notably during activities
such as walking outside and hanging clothes, which he typically manages without difficulty.
An X-ray conducted today reveals a small pleural effusion. The patient reports that his shortness of breath occurs primarily during movement and not while at rest, watching TV, or sleeping. There is no mention of chest pain or other complaints. The
patients kidney function has deteriorated slightly, with recent blood tests showing a creatinine level of 1.6. The consideration of increasing his diuretic medication, Furosemide (Lasix), is complicated by this renal function concern.
He has a background of severe coronary artery disease and is currently on 40 mg of Furosemide, alongside a history of having fluid retention post-blood transfusion, necessitating an increase in his diuretic dose in the past.
PAST MEDICAL AND SURIGICAL HISTORY
- Myelodysplastic syndrome
- Severe coronary artery disease
REVIEW OF SYSTEMS
- Respiratory: Shortness of breath on exertion
- General: Fatigue
PHYSICAL EXAM
General: Alert, no acute distress.
Skin: Warm, dry.
Head: Normocephalic, atraumatic.
Neck: Supple, trachea midline.
Eye, Ears, Nose, Mouth and Throat: Oral mucosa moist.
Cardiovascular: Normal peripheral perfusion, No edema.
Respiratory: Respirations are non-labored, decreased breath sounds on the left side due to small pleural effusion. I walked the patient in the emergency department for about 60 feet and his room air sat remained at 96% however he became somewhat
tachypneic toward the end of the walk
Gastrointestinal: Abdomen nondistended.
Back: Normal range of motion, Normal alignment.
Musculoskeletal: Normal range of motion, normal strength.
Neurological: Alert and oriented to person, place, time, and situation, No focal neurological deficit observed.
Psychiatric: Cooperative, appropriate mood & affect.
PROBLEM LIST
- Acute Problems:
- Shortness of breath
- Small pleural effusion
- Recent increase in creatinine
- Chronic Problems:
- Myelodysplastic syndrome
- Severe coronary artery disease
PLAN
- Consider increasing Furosemide (Lasix) dosage to manage fluid retention while monitoring kidney function closely.
- Administer intravenous Furosemide to promote rapid diuresis.
- Contact working manager to discuss the patients current condition and adjust the management plan accordingly.
DIFFERENTIAL DIAGNOSIS
The Differential Diagnosis includes, in no particular order and is not limited to:
- Congestive heart failure
- Exacerbation of chronic obstructive pulmonary disease
- Pulmonary embolism
- Viral or bacterial pneumonia
- Anemia-related exertional dyspnea
- Myocardial infarction
- Spontaneous pneumothorax
- Cardiac arrhythmia
- Aspiration pneumonia
- Acute kidney injury related to decreased perfusion due to heart failure or other causes
RADIOLOGY
- Chest x-ray shows a small left pleural effusion
EKG
- V paced, rate of 85
LABS
- Hemoglobin 8.4 and 9 days ago was 7.4, creatinine 1.6 which is higher than prior, BNP 3690
UPDATE
- Sent message to Dr. Swanson 'ANGIE RAYA, 88M, ROOM 21. Known to [facility]. Here w/ SOB/FREEMAN, fatigue. Had blood transfusion last week (went from 7.4 to 8.4 today). RA sats after I walked him for about 60ft remained 96%. CXR shows a left
pleural effusion. He says his good weight is 175, but darrioner is weighing him at 190 (but he doesn't think he has been gaining weight). BNP 3690 which is lower than prior. He normally takes lasix 40mg qd and I am giving an IV dose of 40mg now.
His Cr is newly elevated at 1.6. May echo EF 45-50% and global hypokinesis. He doesn't want to stay, but I'm hoping Anneliese could get him in soon this coming week.'
SUMMARY OF ENCOUNTER
The patient, an 88-year-old male, presented to the emergency department with increased shortness of breath and fatigue following a blood transfusion a week ago. Despite an improvement in hemoglobin levels from 7.4 to 8.4, the patient reports
significant dyspnea on exertion. An x-ray revealed a small pleural effusion, contributing to his symptoms. Concerns about kidney function arise with an increased creatinine level noted post-transfusion. Furosemide was administered to address fluid
retention, and discussions have been made to potentially increase dosage temporarily, considering the delicate renal status.
DISPOSITION
Discharge
ASSESSMENT
The patient�s primary issues include shortness of breath likely due to fluid overload related to the small pleural effusion, exacerbated by pre-existing conditions like severe coronary artery disease.
EMERGENCY TREATMENTS ADMINISTERED
Intravenous administration of Furosemide was conducted to manage fluid retention.
MANAGEMENT OF THE PATIENTS CARE WAS DISCUSSED WITH
Care coordination and management discussions occurred with Dr. Swanson, the on-call working manager.
PLAN
To provisionally increase Furosemide dosage to 80 mg tomorrow to manage fluid retention and subsequently return to the normal dosing. Coordinate with cardiology to facilitate a follow-up appointment soon, preferably by Thursday, to reassess the
patient�s condition.
INDEPENDENT REVIEW OF LABS AND INTERPRETATION OF TESTS
My independent review indicates decreased renal function with a creatinine level increase to 1.6. Hemoglobin levels improved to 8.4 post-transfusion.
PATIENT EDUCATION AND COUNSELING
The patient was advised on signs of worsening renal function or fluid overload and instructed to seek immediate care if symptoms exacerbate.
FOLLOW-UP INSTRUCTIONS
The patient was instructed to follow up with cardiology early next week and to monitor for any concerning symptoms.
MEDICATION RECONCILIATION
Patient received intravenous Furosemide in the emergency department. A temporary increase to 80 mg of Furosemide was advised for the following day.
MEDICAL DECISION MAKING
- Number and Complexity of Problems Addressed: Chronic conditions affecting care include myelodysplastic syndrome and severe coronary artery disease. The Differential Diagnosis includes congestive heart failure, exacerbation of COPD, pulmonary
embolism, pneumonia, anemia-related dyspnea, myocardial infarction, pneumothorax, cardiac arrhythmia, and kidney injury.
- Data:
Category 1
My independent interpretation of the chest x-ray indicates a small pleural effusion contributing to respiratory symptoms.
Category 3
Discussion of management with the on-call working manager, Dr. Swanson, regarding diuretic adjustments and follow-up arrangements-she states that she will message the office for close follow-up
-Risk:
Consideration of Admission/Observation: Escalation of care including admission/observation was considered given the complexity and risk of the patients presenting complaint, exam findings, and their underlying comorbidities. However, ultimately I
feel the patient is safe for outpatient management with close follow up. Reasoning: Work-up reassuring, does not reveal any acute life/organ threatening processes, patients symptoms well controlled upon reevaluation, reexamination is reassuring,
vitals are stable, patient agreeable with discharge, reliable for follow-up.
DIAGNOSIS
- Small pleural effusion (J90)
- Chronic heart failure, unspecified (I50.9)
- Anemia in chronic diseases classified elsewhere (D63.8)
Past History
Past History
ED Past Medical History: CAD, CHF, HTN, Hypercholesterolemia and [place]
ED Past Surgical History: Cardiac and Orthopedic
Social History
Tobacco: Non-smoker
Alcohol: None
Drug: None
Personal:
Living: with family
Phy Exam
Physical Exam
Physical Exam:
See HPI
Scores
Heart Failure Risk
Heart Failure Risk Score: Not Applicable
Course
Orders/Labs/Results
Orders:
Orders
11/04/24 20:20
Electrocardiogram (*1) Urgent
Reason for Study: Shortness of Breath
EKG- Treatment ONCE
CR Chest - 2 Views Urgent
Comment:
Reason For Exam: shortness of breath
11/04/24 20:25
Complete Blood Count/With Diff Urgent
Comprehensive Metabolic Panel Urgent
Pro-BNP [NT-proBNP] Urgent
11/04/24 23:07
Furosemide [Lasix] 40 mg IV NOW STA
Abnormal Lab Results
11/04/24
20:25
RBC 2.66 L 10^6/uL
(4.70-6.10)
Hgb 8.4 L g/dL
(13.0-18.0)
Hct 27.2 L %
(39.0-52.0)
MCV 102.3 H fL
(80.0-94.0)
MCH 31.6 H pg
(27.0-31.0)
MCHC 30.9 L g/dL
(33.0-37.0)
RDW 23.0 H %
(11.5-14.5)
MPV 11.8 H fL
(7.4-10.4)
Absolute Lymphs (auto) 0.9 L 10^3/uL
(1.2-3.4)
Absolute Monos (auto) 0.8 H 10^3/uL
(0.1-0.6)
Lymphocytes % 15.4 L %
(20.5-51.1)
Monocytes % 13.9 H %
(1.7-9.3)
BUN 39 H mg/dl
(9-20)
Creatinine 1.6 H mg/dL
(0.7-1.3)
Glucose 107 H mg/dl
(70-99)
11/04/24 20:25
11/04/24 20:25
Vital Signs
Initial and Last Documented VS:
Initial Vital Signs
Temp Pulse Resp BP Pulse Ox
36.8 C 86 16 134/72 95
11/04/24 20:16 11/04/24 20:16 11/04/24 20:16 11/04/24 20:16 11/04/24 20:16
Last Documented Vital Signs
Temp Pulse Resp BP Pulse Ox
36.8 C 72 16 140/90 96
11/04/24 20:16 11/04/24 23:18 11/04/24 22:45 11/04/24 23:18 11/04/24 22:49
*Pulse Oximetry
SaO2: 96
Oxygen Mode of Delivery: Room air
Patient hypoxic: no
*Critical Care Note
Total Time (30-74mins, 75-104mins- exclusive of procedures): Not Applicable
ED Attending Note
-
Portions of this chart may have been created with voice recognition software.� Occasional wrong word or��sound alike� substitutions may have occurred due to the inherent limitations of voice recognition software.
Discharge Plan
Departure
Prescriptions:
No Action
cyanocobalamin (vitamin B-12) 1,000 MCG tablet
1,000 mcg PO DAILY
nitroglycerin 0.4 MG tablet, sublingual
0.4 mg sublingual [id number] PRN (Reason: chest pain)
multivitamin Tablet
1 tab PO DAILY
sertraline 100 mg Tablet
100 mg PO HS
PreserVision Lutein 226-90-0.8-5 mg Capsule
1 cap PO BID
omega 4-bfa-nee-fish oil [Fish Oil] 1,000 mg (120 mg-180 mg) Capsule
1 cap PO DAILY
melatonin 3 mg Tablet
3 mg PO HS
furosemide 40 mg Tablet
40 mg PO DAILY
Patient Comments:
12/31/22 ecw shows bid but patient's family confirms that he takes it once daily.
acetaminophen 650 mg Tablet Extended Release
650 mg PO [id number] PRN (Reason: mild pain)
pravastatin 80 mg Tablet
40 mg PO QPM
Patient Comments:
12/31/22 patient cuts pill in half
lisinopril 20 mg Tablet
20 mg PO DAILY
metoprolol tartrate 25 mg Tablet
25 mg PO BID
Referrals:
Margie Escudero MD [Family Provider, Family Practice]
Interventions
Interventions:
*Risk Screen - Suicide Last Done: 11/04/24 22:30
*Neglect/Abuse Screening Last Done: 11/04/24 22:30
*ED- Fall Risk Assessment Last Done: 11/04/24 22:30
ED- Cardiac Assessment Last Done: 11/04/24 22:14
ED- Pulmonary Assessment Last Done: 11/04/24 22:15
Discharge Date and Time
Print Language: [id number]
[2024-11-04] MEDS: LASIX 40 MG IV (23:18)
[2024-11-05 00:10] VITALS: BP 149/90
== END 2024-11-05 00:10 | disposition home or self-care (01) ==
LOC: EMR 20:11
PROVIDERS: Emergency Medicine; EMERGENCY PHYSICIAN Emergency Medicine; FAMILY PHYSICIAN Family Medicine
DX: J90 Pleural effusion, not elsewhere classified (principal); I48.91 Unspecified atrial fibrillation; I25.10 Atherosclerotic heart disease of native coronary artery without angina pectoris; D46.9 Myelodysplastic syndrome, unspecified; I25.2 Old myocardial infarction; I11.0 Hypertensive heart disease with heart failure; I50.9 Heart failure, unspecified; E78.00 Pure hypercholesterolemia, unspecified; D63.8 Anemia in other chronic diseases classified elsewhere; Z79.899 Other long term (current) drug therapy; Z95.0 Presence of cardiac pacemaker
CPT/HCPCS: 99283; 96374; 71046; 80053; 83880; 85025; 93005

== ENCOUNTER → 2024-11-16 08:59 | Outpatient (REF) | payer OTHER, SELFPAY ==
[2024-11-16 09:15] LABS: Hematocrit 26.7 % (39.0-52.0); Hemoglobin 8.2 g/dL (13.0-18.0); Mean Corp Hgb Conc. 30.7 g/dL (33.0-37.0); Mean Corpuscular Volume 104.7 fL (80.0-94.0); Platelet Count 233 10^3/uL (130-400); Red Cell Dist. Width 23.7 % (11.5-14.5)
== END ==
LOC: OIDL 08:59
PROVIDERS: ATTENDING PHYSICIAN Internal Medicine Hematology & Oncology
DX: D46.9 Myelodysplastic syndrome, unspecified (principal); D46.1 Refractory anemia with ring sideroblasts; D50.9 Iron deficiency anemia, unspecified
CPT/HCPCS: 36415; 85025

== ENCOUNTER → 2024-12-01 11:20 | Outpatient (REF) | payer OTHER, SELFPAY ==
[2024-12-01 11:58] LABS: Hematocrit 26.1 % (39.0-52.0); Hemoglobin 7.7 g/dL (13.0-18.0); Mean Corp Hgb Conc. 29.5 g/dL (33.0-37.0); Mean Corpuscular Volume 102.4 fL (80.0-94.0); Nucleated Red Blood Cells % 2.5 % (-); Platelet Count 179 10^3/uL (130-400); Red Cell Dist. Width 24.8 % (11.5-14.5)
== END ==
LOC: REG 11:20
PROVIDERS: ATTENDING PHYSICIAN Internal Medicine Hematology & Oncology; FAMILY PHYSICIAN Family Medicine
DX: D46.9 Myelodysplastic syndrome, unspecified (principal); D46.1 Refractory anemia with ring sideroblasts; D50.9 Iron deficiency anemia, unspecified
CPT/HCPCS: 36415; 85025

== ENCOUNTER → 2024-12-02 11:09 | Outpatient (REF) | payer OTHER, SELFPAY ==
[2024-12-02 13:17] LABS: Glycohemoglobin (HgbA1c) 5.1 % (4.0-5.6)
[2024-12-02 13:46] LABS: ALT (SGPT) 15 U/L (0-50); AST (SGOT) 22 U/L (17-59); Albumin 4.4 g/dl (3.5-5.0); Alkaline Phosphatase 92 U/L (38-126); Blood Urea Nitrogen 42 mg/dl (9-20); Calcium 8.9 mg/dl (8.4-10.2); Carbon Dioxide 26 mmol/L (22-30); Chloride 106 mmol/L (98-107); Glucose 102 mg/dl (70-99); Potassium 5.1 mmol/L (3.5-5.1); Sodium 140 mmol/L (135-145); Total Protein 6.7 g/dl (6.3-8.2); eGFR 36.21
== END ==
LOC: REG 11:09
PROVIDERS: ATTENDING PHYSICIAN Family Medicine
DX: R79.9 Abnormal finding of blood chemistry, unspecified (principal); Z01.89 Encounter for other specified special examinations; Z79.899 Other long term (current) drug therapy; Z13.1 Encounter for screening for diabetes mellitus; R73.03 Prediabetes
CPT/HCPCS: 36415; 80053; 83036; 84443

== ENCOUNTER 2024-12-07 09:10 | Outpatient (RCR) | payer OTHER, SELFPAY ==
[2024-12-05 10:18] LABS: Hematocrit 24.9 % (39.0-52.0); Hemoglobin 7.4 g/dL (13.0-18.0); Mean Corp Hgb Conc. 29.7 g/dL (33.0-37.0); Mean Corpuscular Volume 103.3 fL (80.0-94.0); Nucleated Red Blood Cells % 2.4 % (-); Platelet Count 196 10^3/uL (130-400); Red Cell Dist. Width 25.2 % (11.5-14.5)
[2024-12-07 10:00] VITALS: BP 136/81
[2024-12-07 10:28] VITALS: BP 136/81
[2024-12-07 10:46] VITALS: BP 109/73
[2024-12-07 12:33] VITALS: BP 131/71
[2024-12-07] MEDS: LASIX 20 MG IV (12:37)
== END 2024-12-13 23:59 | disposition home or self-care (01) ==
LOC: OID 09:10
PROVIDERS: ATTENDING PHYSICIAN Internal Medicine Hematology & Oncology
DX: D46.9 Myelodysplastic syndrome, unspecified (principal); D46.1 Refractory anemia with ring sideroblasts; D50.9 Iron deficiency anemia, unspecified
CPT/HCPCS: 36415; 36430; 85025; 86850; 86870; 86900; 86901; 86920; 86922; 96374; P9016

== ENCOUNTER → 2024-12-15 11:46 | Outpatient (REF) | payer OTHER, SELFPAY ==
[2024-12-15 12:20] LABS: Hematocrit 29.2 % (39.0-52.0); Hemoglobin 8.5 g/dL (13.0-18.0); Mean Corp Hgb Conc. 29.1 g/dL (33.0-37.0); Mean Corpuscular Volume 101.4 fL (80.0-94.0); Nucleated Red Blood Cells % 2.4 % (-); Platelet Count 194 10^3/uL (130-400); Red Cell Dist. Width 25.2 % (11.5-14.5)
== END ==
LOC: REG 11:46
PROVIDERS: ATTENDING PHYSICIAN Internal Medicine Hematology & Oncology; FAMILY PHYSICIAN Family Medicine
DX: D46.9 Myelodysplastic syndrome, unspecified (principal); D46.1 Refractory anemia with ring sideroblasts; D50.9 Iron deficiency anemia, unspecified
CPT/HCPCS: 36415; 85025

== ENCOUNTER 2024-12-16 18:57 | Emergency (ER) | payer OTHER, SELFPAY ==
[2024-12-16 19:02] VITALS: BP 147/81
[2024-12-16 19:34] LABS: Hematocrit 27.2 % (39.0-52.0); Hemoglobin 8.2 g/dL (13.0-18.0); Mean Corp Hgb Conc. 30.1 g/dL (33.0-37.0); Mean Corpuscular Volume 102.3 fL (80.0-94.0); Platelet Count 184 10^3/uL (130-400); Red Cell Dist. Width 25.2 % (11.5-14.5)
[2024-12-16 19:38] VITALS: BP 149/84
[2024-12-16 19:45] LABS: ALT (SGPT) 19 U/L (0-50); AST (SGOT) 30 U/L (17-59); Albumin 4.4 g/dl (3.5-5.0); Alkaline Phosphatase 107 U/L (38-126); Blood Urea Nitrogen 33 mg/dl (9-20); Calcium 8.7 mg/dl (8.4-10.2); Carbon Dioxide 28 mmol/L (22-30); Chloride 105 mmol/L (98-107); Glucose 106 mg/dl (70-99); Potassium 4.4 mmol/L (3.5-5.1); Sodium 140 mmol/L (135-145); Total Protein 6.6 g/dl (6.3-8.2); eGFR 41.70
[2024-12-16 19:55] VITALS: BMI 28.2
[2024-12-16 19:56] LABS: Troponin I 0.018 ng/ml
[2024-12-16 20:00] VITALS: BP 135/75
[2024-12-16 20:26] LABS: Anisocytosis 2+; Hypochromasia 2+; Macrocytosis 2+; Microcytosis 1+; Normal RBC Morphology No; Nucleated Red Blood Cells % 2.3 % (-); Polychromasia Occasional; Target Cells Occasional
[2024-12-16 20:27] LABS: Ovalocytes 1+; Stomatocytes 1+
--- NOTE | 2024-12-16 20:30 | ED.GENMED ---
ED Provider Triage
<Maico Hart MD, Resident - Last Filed: 12/16/24 22:26>
-
Patient seen by provider in Triage?: Seen in Triage
History of Present Illness
<Maico Hart MD, Resident - Last Filed: 12/16/24 22:26>
General
Chief Complaint: Breathing Problem
Source: patient
Exam Limitations: none
Time Seen by Provider: 12/16/24 19:48
History of Present Illness
History of Present Illness:
88-year-old male ( with daughters present at bedside) presents with progressive shortness of breath on exertion associated with dizziness for the past couple of days following a blood transfusion that he had a week ago. Patient has medical history
of myelodysplastic syndrome so he requires blood transfusions. Also has a history of heart failure and A-fib ( Has ICD). He states that he feels like he is fluid overloaded and had a previous similar presentation on 11/05/2024 in [facility],
where he was given furosemide and then discharged with a follow-up to cardiology. No fever, chills, nausea, vomiting, syncope, abdominal syncope, chest pain, acute mental status changes. Follow with Dr. Coy his tattoo identifier.
Past History
<Maico Hart MD, Resident - Last Filed: 12/16/24 22:26>
Past History
ED Past Medical History: CAD, CHF, HTN, Hypercholesterolemia and [place]
ED Past Surgical History: Cardiac and Orthopedic
Social History
Tobacco: Smoker
Alcohol: None
Drug: None
Personal:
Living: with family
Review of Systems
<Maico Hart MD, Resident - Last Filed: 12/16/24 22:26>
Review of Systems
All Other Systems: ROS reviewed and negative except as documented in HPI and ROS
Phy Exam
<Maico Hart MD, Resident - Last Filed: 12/16/24 22:26>
General Physical Exam
General Presentation: well appearing and mild distress
General Habitus: elderly
General Mental: alert
ENT Exam
Additional ENT: Patient has hearing aids present bilaterally
Cardiovascular Exam
Cardiovascular Exam: regular rate/rhythm, pacemaker, systolic murmur (2/6 systolic ejection murmur heard over the right upper sternal borde) and other (3+ pitting edema seen on bilateral lower extremities)
Pulmonary Exam
Pulmonary Exam: other (Decreased breath sounds on left lower lobe of lung as compared to right right lower lobe)
Gastrointestinal Exam
Gastrointestinal Exam: normal bowel sounds, non tender, soft and non distended
Neurological Exam
Neurological Exam: alert and oriented x3
Musculoskeletal Exam
Musculoskeletal Exam: full ROM and no edema
Scores
<Maico Hart MD, Resident - Last Filed: 12/16/24 22:26>
Heart Failure Risk
Heart Failure Risk Score: Yes
History of Stroke or TIA: No
History of intubation for respiratory distress: No
Heart rate on ED arrival >/= 110: No
SaO2 <90% on arrival on room air: No
HR >/=110 during 3min walk test (or too ill to perform test): No
ECG has acute ischemic changes: No
Urea >/=12mmol/L (BUN 33.6mg/dL): No
Serum CO2>/=35mmol/L: No
Troponin I or T elevated to [place] Level (0.4mg/dL): No
NT-proBNP >/=5,000ng/L (5,000pg/ml): No
HF Risk Score: 0
Admission Status: LOW RISK 2.8% Consider discharge to home with f/u visit to PCP/[employer]
Course
<Maico Hart MD, Resident - Last Filed: 12/16/24 22:26>
Orders/Labs/Results
Orders:
Orders
12/16/24 19:06
Electrocardiogram (*1) Urgent
Reason for Study: Other
Other Reason for Exam: Respiratory Distress
EKG- Treatment ONCE
12/16/24 19:17
Complete Blood Count/With Diff Urgent
Comprehensive Metabolic Panel Urgent
NT-proBNP Urgent
Troponin I Urgent
12/16/24 20:11
CR Chest - 2 Views Urgent
Comment:
Reason For Exam: sob
12/16/24 20:42
Interrogate Pacemaker- Treatment ONCE
12/16/24 20:46
Type And Crossmatch [Type+Screen] Urgent
12/16/24 21:30
Furosemide [Lasix] 40 mg IV NOW STA
Abnormal Lab Results
12/16/24
19:17
RBC 2.66 L 10^6/uL
(4.70-6.10)
Hgb 8.2 L g/dL
(13.0-18.0)
Hct 27.2 L %
(39.0-52.0)
MCV 102.3 H fL
(80.0-94.0)
MCHC 30.1 L g/dL
(33.0-37.0)
RDW 25.2 H %
(11.5-14.5)
MPV 11.4 H fL
(7.4-10.4)
Absolute Lymphs (auto) 0.7 L 10^3/uL
(1.2-3.4)
Absolute Monos (auto) 0.7 H 10^3/uL
(0.1-0.6)
Immature Gran % 0.6 H %
(0-0.5)
Lymphocytes % 13.2 L %
(20.5-51.1)
Monocytes % 12.7 H %
(1.7-9.3)
BUN 33 H mg/dl
(9-20)
Creatinine 1.6 H mg/dL
(0.7-1.3)
Glucose 106 H mg/dl
(70-99)
12/16/24 19:17
12/16/24 19:17
Vital Signs
Initial and Last Documented VS:
Initial Vital Signs
Temp Pulse Resp BP Pulse Ox
97.8 F 87 24 147/81 98
12/16/24 19:02 12/16/24 19:02 12/16/24 19:02 12/16/24 19:02 12/16/24 19:02
Last Documented Vital Signs
Temp Pulse Resp BP Pulse Ox
97.8 F 66 19 155/86 95
12/16/24 19:02 12/16/24 21:41 12/16/24 21:30 12/16/24 21:41 12/16/24 21:30
<Marco Antonio Benitez MD - Last Filed: 12/16/24 22:22>
Orders/Labs/Results
Orders:
Orders
12/16/24 19:06
Electrocardiogram (*1) Urgent
Reason for Study: Other
Other Reason for Exam: Respiratory Distress
EKG- Treatment ONCE
12/16/24 19:17
Complete Blood Count/With Diff Urgent
Comprehensive Metabolic Panel Urgent
NT-proBNP Urgent
Troponin I Urgent
12/16/24 20:11
CR Chest - 2 Views Urgent
Comment:
Reason For Exam: sob
12/16/24 20:42
Interrogate Pacemaker- Treatment ONCE
12/16/24 20:46
Type And Crossmatch [Type+Screen] Urgent
12/16/24 21:30
Furosemide [Lasix] 40 mg IV NOW STA
Abnormal Lab Results
12/16/24
19:17
RBC 2.66 L 10^6/uL
(4.70-6.10)
Hgb 8.2 L g/dL
(13.0-18.0)
Hct 27.2 L %
(39.0-52.0)
MCV 102.3 H fL
(80.0-94.0)
MCHC 30.1 L g/dL
(33.0-37.0)
RDW 25.2 H %
(11.5-14.5)
MPV 11.4 H fL
(7.4-10.4)
Absolute Lymphs (auto) 0.7 L 10^3/uL
(1.2-3.4)
Absolute Monos (auto) 0.7 H 10^3/uL
(0.1-0.6)
Immature Gran % 0.6 H %
(0-0.5)
Lymphocytes % 13.2 L %
(20.5-51.1)
Monocytes % 12.7 H %
(1.7-9.3)
BUN 33 H mg/dl
(9-20)
Creatinine 1.6 H mg/dL
(0.7-1.3)
Glucose 106 H mg/dl
(70-99)
12/16/24 19:17
12/16/24 19:17
Vital Signs
Initial and Last Documented VS:
Initial Vital Signs
Temp Pulse Resp BP Pulse Ox
97.8 F 87 24 147/81 98
12/16/24 19:02 12/16/24 19:02 12/16/24 19:02 12/16/24 19:02 12/16/24 19:02
Last Documented Vital Signs
Temp Pulse Resp BP Pulse Ox
97.8 F 66 19 155/86 95
12/16/24 19:02 12/16/24 21:41 12/16/24 21:30 12/16/24 21:41 12/16/24 21:30
<Maico Hart MD, Resident - Last Filed: 12/16/24 22:26>
MDM/Problems Addressed
Differential Diagnosis Includes:
acute volume overload, acute exacerbation of heart failure, COPD
MDM/Problems Addressed:
88 y/o male with progressive SOB following a blood transfusion a week ago. Had similar presentation on 11/05/24. Physical exam shows decreased breath sounds on left lower lobe compared to right, 3+ edema bilaterally and 2/6 systolic ejection murmur
on right upper sternal border.
EKG- ventricular paced rhythm
CBC shows hgb of 8.2, MCV of 102
CMP shows Creatinine of 1.6
Chest xray shows plueral effusion of left lower lobe
Will administer furosemide 40 mg iv to diurese patient, patients total dose is 80 mg today,
- On discharge no respiratory distress, vitals are stable. Will discharge patient with instructions from Dr. Coy (patients tattoo identifier) who agrees with plan and wants patient on 80 mg lasix the next 4 days, will be seen in card f/u with a repeat
BMP to check kidney function, and a 1500 cc fluid restriction from today. Discussed this patient with daughters at bedside.
<Maico Hart MD, Resident - Last Filed: 12/16/24 22:26>
*Pulse Oximetry
SaO2: 96
Oxygen Mode of Delivery: Room air
Patient hypoxic: no
*Critical Care Note
Total Time (30-74mins, 75-104mins- exclusive of procedures): Not Applicable
ED Attending Note
<Maico Hart MD, Resident - Last Filed: 12/16/24 22:26>
-
Portions of this chart may have been created with voice recognition software.� Occasional wrong word or��sound alike� substitutions may have occurred due to the inherent limitations of voice recognition software.
<Marco Antonio Benitez MD - Last Filed: 12/16/24 22:22>
ED Attending Note
Patient seen and examined by attending physician: Yes
I performed a history and physical exam of patient and discussed management with resident, I reviewed resident's note and agree with documented findings and plan of care.: Yes
ED Attending Note:
I have seen and evaluated the patient with a [id number] encounter. I have spoken to the resident and involved in the medical history, the physical exam, medical decision making.
Evaluation and management service: agree unless noted differently below.
Results interpretation: agree unless noted differently below.
Focused HPI: 88-year-old male with extensive history as noted presents to the ER for evaluation of shortness of breath. He has known MDS and chronic anemia and receives regular transfusions. After his blood transfusions he typically will get an
extra dose of Lasix. Last week he received his usual transfusion and took a double dose of Lasix the next day (takes 40 mg daily typically, took 80 mg day after blood transfusion). Despite this he has had progressive increased shortness of breath
with exertion over that period of time. He has had some increased welling in the legs. Came to the ER for assessment. He denies any cough. No fevers or chills. Denies any chest pain. Denies any other acute issues. He follows with Dr. Coy for
cardiology.
Physical exam: Awake and alert not in distress. Vital signs are within acceptable range on my assessment including respiratory rate of 18 and pulse ox of 95% on room air. He does have diminished breath sounds in the left lung base. No JVD. +2
edema in the legs.
Medical Decision Makin-year-old male presents with increased shortness of breath over the past week since a routine blood transfusion last week. This is despite compliance with his Lasix. Vitals and exam as above. Labs were reviewed his
hemoglobin is stable, chemistry shows stable CKD. Troponin negative. proBNP is elevated and chest x-ray shows moderate pleural effusion on the left slightly increased from prior. Overall clinical picture is consistent with CHF exacerbation. I
had a long discussion with patient and family�his vital signs are acceptable and he does not appear to have any respiratory distress. No luigi edema on x-ray. We spoke about admission for IV diuresis versus a trial of discharge on increased
diuretic dose at home patient prefers to go home on increased diuretic dose. We did speak about strict return precautions if symptoms are worsening. I discussed the case with tattoo identifier to ensure good outpatient follow-up and they are in
agreement with this plan. Spoke to patient about fluid restriction, follow-up plan including need for repeat blood work given increased diuretic dose. Confirm this plan with daughters as well. All questions answered.
Discharge Plan
Departure
Patient Disposition: Home (Routine Discharge)
Date of Disposition: 12/16/24
Time of Disposition: 21:30
Patient with high blood pressure during this ER visit?: No
Discharge Problem:
CHF exacerbation, Pleural effusion
Instructions: *CBC Heart Failure Instructions
Prescriptions:
No Action
cyanocobalamin (vitamin B-12) 1,000 MCG tablet
1,000 mcg PO DAILY
nitroglycerin 0.4 MG tablet, sublingual
0.4 mg sublingual [id number] PRN (Reason: chest pain)
multivitamin Tablet
1 tab PO DAILY
sertraline 100 mg Tablet
100 mg PO HS
PreserVision Lutein 226-90-0.8-5 mg Capsule
1 cap PO BID
omega 1-wmr-lrv-fish oil [Fish Oil] 1,000 mg (120 mg-180 mg) Capsule
1 cap PO DAILY
melatonin 3 mg Tablet
3 mg PO HS
furosemide 40 mg Tablet
40 mg PO DAILY
Patient Comments:
12/31/22 ecw shows bid but patient's family confirms that he takes it once daily.
acetaminophen 650 mg Tablet Extended Release
650 mg PO [id number] PRN (Reason: mild pain)
pravastatin 80 mg Tablet
80 mg PO QPM
Patient Comments:
12/31/22 patient cuts pill in half
amlodipine 10 mg Tablet
10 mg PO DAILY
sacubitril-valsartan [Entresto] 49-51 mg Tablet
1 tab PO DAILY
aspirin 81 mg Capsule
81 mg PO DAILY
Referrals:
Ryan Coy MD [Active, Cardiology] - Call in 1-3 days for appt
Margie Escudero MD [Family Provider, Family Practice]
Activity Restrictions/Additional Instructions:
You were seen in the emergency room for shortness of breath and you are found to have extra fluid on your lungs and legs consistent with mild heart failure. You were given a dose of your diuretic (Lasix) through the IV here. The tattoo identifier
recommended doubling your Lasix dose for the next few days�try doubling your dose for the next 4 days to start. You should hear from the cardiology office early next week to follow-up as an outpatient you will need repeat lab work to check your
electrolytes and kidney function. You should try to limit your fluid intake to less than 1500 cc daily. If you notice your symptoms are worsening at any point please return to the emergency room immediately.
Thank you for visiting the Emergency Department at [facility].
1. Please schedule a follow up appointment as directed. Call first thing tomorrow morning to make an appointment.
2. If indicated, please take your medications as instructed and indicated on discharge paperwork.
3. If any of your symptoms do not improve, or persist, or become more severe within 6-12 hours, please return to the emergency department for further care.
4. Please return to the emergency department if you develop a headache, neck pain/stiffness, fever greater than 100.4F, chest pain, shortness of breath, persistent nausea, vomiting, slurred speech, difficulty walking, numbness/tingling, weakness,
signs of infection or any other symptoms that are worrisome to you.
Please call [phone] if you have any questions.
Interventions
Interventions:
*Risk Screen - Suicide Last Done: 12/16/24 19:02
*General Assessment Last Done: 12/16/24 19:02
*Neglect/Abuse Screening Last Done: 12/16/24 19:02
*ED- Fall Risk Assessment Last Done: 12/16/24 19:56
*ED COVID-19 Vaccine History Last Done: 12/16/24 19:56
*ED Influenza Vaccine History Last Done: 12/16/24 19:56
*Nursing Disposition Last Done: 12/16/24 22:05
ED- Cardiac Assessment Last Done: 12/16/24 20:15
ED- Pulmonary Assessment Last Done: 12/16/24 20:15
Discharge Date and Time
Discharge Date/Time: 12/16/24 22:06
Print Language: POLISH
[2024-12-16 21:00] VITALS: BP 155/86
[2024-12-16] MEDS: LASIX 40 MG IV (21:41)
== END 2024-12-16 22:06 | disposition home or self-care (01) ==
LOC: EMR 18:57
PROVIDERS: Student in an Organized Health Care Education/Training Program; EMERGENCY PHYSICIAN Emergency Medicine; FAMILY PHYSICIAN Family Medicine
DX: I50.9 Heart failure, unspecified (principal); J90 Pleural effusion, not elsewhere classified; D46.9 Myelodysplastic syndrome, unspecified; E78.00 Pure hypercholesterolemia, unspecified; I48.91 Unspecified atrial fibrillation; I11.0 Hypertensive heart disease with heart failure; I25.10 Atherosclerotic heart disease of native coronary artery without angina pectoris; F17.200 Nicotine dependence, unspecified, uncomplicated; Z79.899 Other long term (current) drug therapy; Z95.1 Presence of aortocoronary bypass graft; Z95.810 Presence of automatic (implantable) cardiac defibrillator
CPT/HCPCS: 99283; 96374; 71046; 80053; 83880; 84484; 85025; 86850; 86900; 86901; 93005

== ENCOUNTER → 2024-12-22 10:02 | Outpatient (REF) | payer OTHER, SELFPAY ==
[2024-12-22 10:16] LABS: Hematocrit 28.1 % (39.0-52.0); Hemoglobin 8.2 g/dL (13.0-18.0); Mean Corp Hgb Conc. 29.2 g/dL (33.0-37.0); Mean Corpuscular Volume 103.7 fL (80.0-94.0); Platelet Count 171 10^3/uL (130-400); Red Cell Dist. Width 25.1 % (11.5-14.5)
== END ==
LOC: OIDL 10:02
PROVIDERS: ATTENDING PHYSICIAN Internal Medicine Hematology & Oncology
DX: D46.9 Myelodysplastic syndrome, unspecified (principal); D46.1 Refractory anemia with ring sideroblasts; D50.9 Iron deficiency anemia, unspecified
CPT/HCPCS: 36415; 85025

== ENCOUNTER → 2024-12-29 13:47 | Outpatient (REF) | payer OTHER, SELFPAY ==
[2024-12-29 16:17] LABS: Blood Urea Nitrogen 40 mg/dl (9-20); Calcium 8.6 mg/dl (8.4-10.2); Carbon Dioxide 29 mmol/L (22-30); Chloride 105 mmol/L (98-107); Glucose 123 mg/dl (70-99); Potassium 4.6 mmol/L (3.5-5.1); Sodium 142 mmol/L (135-145); eGFR 41.44
== END ==
LOC: REG 13:47
PROVIDERS: ATTENDING PHYSICIAN Internal Medicine; FAMILY PHYSICIAN Family Medicine
DX: I50.22 Chronic systolic (congestive) heart failure (principal)
CPT/HCPCS: 36415; 80048

== ENCOUNTER → 2025-01-04 16:13 | Outpatient (REF) | payer OTHER, SELFPAY ==
[2025-01-04 17:03] LABS: Hematocrit 27.3 % (39.0-52.0); Hemoglobin 7.9 g/dL (13.0-18.0); Mean Corp Hgb Conc. 28.9 g/dL (33.0-37.0); Mean Corpuscular Volume 103.0 fL (80.0-94.0); Nucleated Red Blood Cells % 2.6 % (-); Platelet Count 234 10^3/uL (130-400); Red Cell Dist. Width 26.0 % (11.5-14.5)
[2025-01-04 17:33] LABS: Hypochromasia 1+; Macrocytosis 2+; Microcytosis 2+; Normal RBC Morphology No
[2025-01-04 17:34] LABS: Ovalocytes 1+; Polychromasia 1+
[2025-01-04 17:35] LABS: Target Cells 1+
[2025-01-04 17:37] LABS: Stomatocytes Slight
[2025-01-04 17:38] LABS: Anisocytosis 2+
== END ==
LOC: REG 16:13
PROVIDERS: ATTENDING PHYSICIAN Internal Medicine Hematology & Oncology
DX: D46.9 Myelodysplastic syndrome, unspecified (principal); D46.1 Refractory anemia with ring sideroblasts; D50.9 Iron deficiency anemia, unspecified
CPT/HCPCS: 36415; 85025; 86850; 86870; 86900; 86901

== ENCOUNTER 2025-01-06 08:18 | Outpatient (RCR) | payer OTHER, SELFPAY ==
[2024-12-28 09:21] LABS: Hematocrit 26.0 % (39.0-52.0); Hemoglobin 7.5 g/dL (13.0-18.0); Mean Corp Hgb Conc. 28.8 g/dL (33.0-37.0); Mean Corpuscular Volume 107.0 fL (80.0-94.0); Platelet Count 220 10^3/uL (130-400); Red Cell Dist. Width 26.0 % (11.5-14.5)
[2025-01-06 08:50] VITALS: BP 122/66
[2025-01-06 09:08] VITALS: BP 131/66
[2025-01-06 11:37] VITALS: BP 147/78
[2025-01-06] MEDS: LASIX 20 MG IV (11:51)
== END 2025-01-13 23:59 | disposition home or self-care (01) ==
LOC: OID 08:18
PROVIDERS: ATTENDING PHYSICIAN Internal Medicine Hematology & Oncology
DX: D46.9 Myelodysplastic syndrome, unspecified (principal); D46.1 Refractory anemia with ring sideroblasts; D50.9 Iron deficiency anemia, unspecified
CPT/HCPCS: 36415; 36430; 85025; 86850; 86870; 86900; 86901; 86920; 86922; 96374; P9016

== ENCOUNTER → 2025-01-18 09:35 | Outpatient (REF) | payer OTHER, SELFPAY ==
[2025-01-18 09:50] LABS: Hematocrit 28.7 % (39.0-52.0); Hemoglobin 8.4 g/dL (13.0-18.0); Mean Corp Hgb Conc. 29.3 g/dL (33.0-37.0); Mean Corpuscular Volume 103.6 fL (80.0-94.0); Platelet Count 188 10^3/uL (130-400); Red Cell Dist. Width 26.0 % (11.5-14.5)
== END ==
LOC: CLAB 09:35
PROVIDERS: ATTENDING PHYSICIAN Internal Medicine Hematology & Oncology
DX: D46.9 Myelodysplastic syndrome, unspecified (principal); D46.1 Refractory anemia with ring sideroblasts; D50.9 Iron deficiency anemia, unspecified
CPT/HCPCS: 85025

== ENCOUNTER → 2025-01-23 11:09 | Outpatient (REF) | payer OTHER, SELFPAY ==
[2025-01-23 12:40] LABS: Blood Urea Nitrogen 43 mg/dl (9-20); Calcium 8.8 mg/dl (8.4-10.2); Carbon Dioxide 30 mmol/L (22-30); Chloride 101 mmol/L (98-107); Glucose 106 mg/dl (70-99); Potassium 4.5 mmol/L (3.5-5.1); Sodium 135 mmol/L (135-145); eGFR 41.44
== END ==
LOC: REG 11:09
PROVIDERS: ATTENDING PHYSICIAN Internal Medicine
DX: I25.810 Atherosclerosis of coronary artery bypass graft(s) without angina pectoris (principal)
CPT/HCPCS: 36415; 80048

== ENCOUNTER → 2025-02-28 14:26 | Outpatient (REF) | payer OTHER, SELFPAY ==
[2025-02-28 15:40] LABS: Iron 220 ug/dl (49-181)
[2025-02-28 15:50] LABS: Total Iron Binding Capacity 341 ug/dl (261-462)
[2025-02-28 15:53] LABS: Hematocrit 31.0 % (39.0-52.0); Hemoglobin 9.7 g/dL (13.0-18.0); Mean Corp Hgb Conc. 31.3 g/dL (33.0-37.0); Mean Corpuscular Volume 110.7 fL (80.0-94.0); Nucleated Red Blood Cells % 2.5 % (-); Platelet Count 209 10^3/uL (130-400); Red Cell Dist. Width 27.3 % (11.5-14.5)
[2025-02-28 15:54] LABS: Anisocytosis 3+; Microcytosis 1+; Normal RBC Morphology No
[2025-02-28 15:55] LABS: Hypochromasia 2+
[2025-02-28 15:56] LABS: Macrocytosis 2+
[2025-02-28 16:16] LABS: Ferritin 124.0 ng/ml (17.9-464.0)
== END ==
LOC: REG 14:26
PROVIDERS: ATTENDING PHYSICIAN Internal Medicine Hematology & Oncology
DX: D46.9 Myelodysplastic syndrome, unspecified (principal); D46.1 Refractory anemia with ring sideroblasts; D50.9 Iron deficiency anemia, unspecified
CPT/HCPCS: 36415; 82728; 83540; 83550; 85025